=== PATIENT | male | born 1985 | race Caucasian/White ===

== ENCOUNTER 2017-04-10 11:01 | Emergency (ER) | payer MEDICAID ==
[~2017-04-10] VITALS: Ht 175.3 cm; Wt 145.1 kg
[2017-04-10 11:17] VITALS: BP 179/95
[2017-04-10] MEDS ORDERED: IPRATROPIUM BROM 0.5 MG/2.5ML INH SOL NEB ONE (12:45)
[2017-04-10] MEDS ORDERED: ALBUTEROL SULF 2.5 MG/0.5ML(0.5%) NEB SOLN NEB ONE (12:45)
[2017-04-10] MEDS ORDERED: cefTRIAXone SOD 1,000 MG VL IM ONE (13:00)
[2017-04-10] MEDS ORDERED: methylPREDNISolone SOD SUCC 125 MG/2 ML VL IM ONE (13:00)
== END 2017-04-10 13:38 | disposition home or self-care (01) ==
LOC: ER 11:01
DX: J45.901 Unspecified asthma with (acute) exacerbation (principal); J02.9 Acute pharyngitis, unspecified; I10 Essential (primary) hypertension
CPT/HCPCS: 71020; 94640; 96372; 99284; J0696; J2930

== ENCOUNTER → 2020-08-11 13:44 | Emergency (ER) | payer MEDICAID ==
[~2020-08-11] VITALS: Ht 180.3 cm; Wt 190.5 kg
[~2020-08-11 13:44] MED LIST: ALBU108A5 PO; FLUT1AER6 PO; HYDROcodone-ACET 10/325MG TAB PO ONE; IPRAAER6; amLODIPine BESYLATE 5 MG TAB PO ONE; cloNIDine HCL 0.1 MG TAB ONE
[2020-08-11 16:28] VITALS: BP 169/87
== END | disposition home or self-care (01) ==
LOC: ER 13:44
DX: R51.9 Headache, unspecified (principal); I16.1 Hypertensive emergency; I10 Essential (primary) hypertension; J45.909 Unspecified asthma, uncomplicated; W18.39XA Other fall on same level, initial encounter; Y93.89 Activity, other specified; Y92.89 Other specified places as the place of occurrence of the external cause; Y99.8 Other external cause status
CPT/HCPCS: 70260

== ENCOUNTER 2023-04-07 17:26 | Inpatient (IN) | payer MEDICAID ==
[~2023-04-07] VITALS: Ht 175.3 cm; Wt 195.0 kg
[~2023-04-07 17:26] MED LIST changes: -HYDROcodone-ACET 10/325MG TAB PO ONE; -amLODIPine BESYLATE 5 MG TAB PO ONE; -cloNIDine HCL 0.1 MG TAB ONE
[2023-04-07 18:57] LABS: Basophils # (auto) 0.1 10 ^3/uL (0-0.2); Basophils % (auto) 0.8 % (0.0-2.0); Eosinophils # (auto) 0.3 10 ^3/uL (0-0.8); Eosinophils % (auto) 2.9 % (0.0-7.0); Hematocrit 44.2 % (41.0-53.0); Hemoglobin 14.3 g/dL (13.5-17.5); Lymphocytes # (auto) 1.8 10 ^3/uL (0.4-5.4); Mean Corpuscular Hemoglobin 29.4 pg (28.0-32.0); Mean Corpuscular Hgb Conc. 32.4 g/dL (32.0-36.0); Mean Corpuscular Volume 90.7 fL (80.0-100.0); Monocytes # (auto) 0.7 10 ^3/uL (0-1.3); Monocytes % (auto) 6.2 % (0.0-12.0); Neutrophils # (auto) 8.8 10 ^3/uL (1.6-8.6); Neutrophils % (auto) 75.1 % (37.0-80.0); Nucleated Red Blood Cells % 0.1 %; Red Blood Cells 4.88 10^6/uL (4.5-5.90); Red Cell Distribution Width 14.6 % (11.8-14.3); White Blood Cell 11.8 10^3/uL (4.4-10.8)
[2023-04-07 19:09] LABS: Alanine Aminotransferase 28 U/L (7-40); Alkaline Phosphatase 82 U/L (46-116); Anion Gap 4 (5-15); Aspartate Aminotransferase 17 U/L (13-40); Bilirubin, Total 0.6 mg/dL (0.2-1.0); Calcium 8.7 mg/dL (8.7-10.4); Carbon Dioxide 30 mmol/L (20-30); Chloride 104 mmol/L (98-107); Glucose 83 mg/dL (74-106); Magnesium 2.1 mg/dL (1.6-2.6); Potassium 4.1 mmol/L (3.5-5.1); Sodium 138 mmol/L (136-145); Total Protein 6.9 g/dL (5.7-8.2)
[2023-04-07 19:10] LABS: BUN/Creatinine Ratio 5.6 (10.0-20.0); Blood Urea Nitrogen < 5 mg/dL (9-23)
[2023-04-07] MEDS ORDERED: IPRATROPIUM BROM 0.5 MG/2.5ML INH SOL NEB ONE (19:30)
[2023-04-07] MEDS ORDERED: methylPREDNISolone SOD SUCC 125 MG/2 ML VL IV ONE (19:30)
[2023-04-07] MEDS ORDERED: ALBUTEROL SULF 2.5 MG/0.5ML(0.5%) NEB SOLN NEB ONE (19:30)
[2023-04-07] MEDS ORDERED: ALBUTEROL MEDNEB 2.5 mg/3ml NEB ONE (19:31)
[2023-04-07] MEDS ORDERED: ACETAMINOPHEN 325 MG TAB PO PRN (21:15)
[2023-04-07] MEDS ORDERED: ALBUTEROL MEDNEB 2.5 mg/3ml NEB NEB PRN (21:15)
[2023-04-07] MEDS ORDERED: ONDANSETRON HCL 4 MG/2 ML VIAL IV PRN (21:15)
[2023-04-07] MEDS ORDERED: IPRATROPIUM BROM 0.5 MG/2.5ML INH SOL NEB PRN (21:15)
[2023-04-07] MEDS ORDERED: TEMAZEPAM 15 MG CAP PO PRN (21:15)
[2023-04-07 21:23] VITALS: BP 127/69; PULSE 92; RESP 20; TEMP 97.5; O2SAT 97
[2023-04-07] MEDS ORDERED: methylPREDNISolone SOD SUCC 125 MG/2 ML VL IV SCH (22:00)
[2023-04-08] MEDS ORDERED: LOSARTAN POTASSIUM 50 MG TAB PO SCH (10:00)
[2023-04-08] MEDS ORDERED: FUROSEMIDE 20 MG TAB PO SCH (10:00)
[2023-04-08] MEDS ORDERED: amLODIPine BESYLATE 5 MG TAB PO SCH (10:00)
[2023-04-08] MEDS ORDERED: AZITHROMYCIN 500MG/ 250ML 250 ML IV SCH (10:00)
== END 2023-04-08 03:33 | disposition left against medical advice (07) | DRG 133 ==
LOC: ER 17:26 → OVERFLOW 21:14
PROVIDERS: ADMIT Nurse Practitioner; ATTEND Nurse Practitioner
DX: J96.21 Acute and chronic respiratory failure with hypoxia (principal); J45.901 Unspecified asthma with (acute) exacerbation; Z68.44 Body mass index [BMI] 60.0-69.9, adult; E66.01 Morbid (severe) obesity due to excess calories; Z53.21 Procedure and treatment not carried out due to patient leaving prior to being seen by health care provider; Z77.22 Contact with and (suspected) exposure to environmental tobacco smoke (acute) (chronic); I10 Essential (primary) hypertension; J98.4 Other disorders of lung; E16.2 Hypoglycemia, unspecified
CPT/HCPCS: 36415; 71045; 80053; 83605; 83735; 83880; 84484; 85025; 85379; 94640; 99291; G0378

== ENCOUNTER 2024-04-16 13:43 | Inpatient (IN) | payer MEDICAID ==
[~2024-04-16] VITALS: Ht 180.3 cm; Wt 218.3 kg
[2024-04-16] MEDS: ALBUTEROL SULF 2.5 MG/0.5ML(0.5%) NEB SOLN NEB ONE (14:31)
[2024-04-16] MEDS: IPRATROPIUM BROM 0.5 MG/2.5ML INH SOL NEB ONE (14:31)
--- NOTE | 2024-04-16 14:35 | DVH ---
CHEST RADIOGRAPH Indication: sob Technique: Single frontal view of the chest was obtained Comparison: XY CHEST PORTABLE on DOS: 04/07/23 FINDINGS: Lines and Tubes: None Lungs: No focal consolidation. Mild interstitial prominence. Pleura: No effusion. No pneumothorax. Cardiomediastinal contours: Mild cardiomegaly Bones: No acute osseous abnormality. IMPRESSION: Mild pulmonary vascular congestion.
--- NOTE | 2024-04-16 15:05 | ED.PDOC ---
History of Present Illness HPI Comments 38M presents to the ER in a wheelchair and w/ prior Hx of Asthma which may be associated to the c/c of SOB for the past 3 weeks. Pt reports on having a productive cough which is also associated w/ CP. PMHx of HTN and eczema. Social Hx of Vape use but denies alcohol and substance use. Denies chills, fever, N/ V/D, or other associated symptoms, modifiers, or recent injuries at this time. Chief Complaint: Shortness of Breath Time Seen by MD: 14:30 Primary Care Provider: NONE Reviewed Notes: Nurses Notes, Medications, Allergies Allergies: Coded Allergies: NO KNOWN ALLERGIES (Unverified , 02/28/13) Home Meds Reported Medications Fluticasone-Salmeterol (Wixela Inhub 250-50 Mcg/Dose) 1 Aer Aer, 1 PUFF PO BID 08/11/20 Albuterol Sulfate (Albuterol Sulfate Hfa) 108 Mcg/Act Aer, 2 PUFF PO QID PRN for wheezing 08/11/20 Ipratropium-Albuterol (COMBIVENT RESPIMAT) Respimat Aer 08/11/20 Information Source: Patient Mode of Arrival: Wheelchair Severity: Moderate Timing: Weeks Duration: Since onset Prehospital treatment: None Past Medical History PAST MEDICAL HISTORY: Asthma, HTN Past Medical History (Other): eczema Surgical History: Denies all surgeries Family History Family History: Reviewed,noncontributory to illness, Unknown Social History Smoker: Secondhand, Other (Vape use) Alcohol: Denies ETOH Use Drugs: Denies Drug Use Lives In: Home Constitutional: denies: chills, diaphoresis, fatigue, fever, malaise, sweats, weakness, others EENTM: denies: blurred vision, double vision, ear bleeding, ear discharge, ear drainage, ear pain, ear ringing, eye pain, eye redness, hearing loss, mouth pain, mouth swelling, nasal discharge, nose bleeding, nose congestion, nose pain, photophobia, tearing, throat pain, throat swelling, voice changes, others Respiratory: reports: cough, shortness of breath; denies: hemoptysis, orthopnea, SOB at rest, SOB with excertion, stridor, wheezing, others Cardiovascular: reports: chest pain; denies: dizzy spells, diaphoresis, Dyspnea on exertion, edema, irregular heart beat, left arm pain, lightheadedness, palpitations, PND, syncope, others Gastrointestinal: denies: abdomen distended, abdominal pain, blood streaked bowels, constipated, diarrhea, dysphagia, difficulty swallowing, hematemesis, melena, nausea, poor appetite, poor fluid intake, rectal bleeding, rectal pain, vomiting, others Genitourinary: denies: burning, dysuria, flank pain, frequency, hematuria, incontinence, penile discharge, penile sore, pain, testicle pain, testicle swelling, urgency, others Neurological: denies: dizziness, fainting, headache, left sided numbness, left sided weakness, numbness, paresthesia, pre-existing deficit, right sided numbness, right sided weakness, seizure, speech problems, tingling, tremors, weakness, others Musculoskeletal: denies: back pain, gout, joint pain, joint swelling, muscle pain, muscle stiffness, neck pain, others Integumetry: denies: bruises, change in color, change in hair/nails, dryness, laceration, lesions, lumps, rash, wounds, others Allergic/Immunocompromised: denies: Difficulty Healing, Frequent Infections, Hives, Itching, others Hematologic/Lymphatic: denies: anemia, blood clots, easy bleeding, easy bruising, swollen glands, others Endocrine: denies: excessive hunger, excessive sweating, excessive thirst, excessive urination, flushing, intolerance to cold, intolerance to heat, unexplained weight gain, unexplained weight loss, others Psychiatric: denies: anxiety, bipolar disorder, depression, hopeless, panic disorder, schizophrenia, sleepless, suicidal, others All Other Systems: Reviewed and Negative Physical Exam General Appearance: Mild Distress, Obese HEENT: PERRL/EOMI Neck: Full Range of Motion, Normal Inspection Respiratory: Accessory Muscle Use, Decreased Breath Sounds, Respiratory Distress, Wheezing Cardiovascular: No Edema, No JVD, Regular Rate/Rhythm Breast Exam: Deferred Gastrointestinal: Non Tender, Soft Genitalia: Deferred Pelvic: Deferred Rectal: Deferred Extremities: No calf tenderness, Normal inspection, Normal range of motion, Non-tender, Pedal edema Neurologic: Alert (Oriented x4), Normal Affect, Normal Mood, Other (Moves all extremities. No gross focal deficit.) Cerebellar Function: NOT DONE Reflexes: NOT DONE Skin: Dry, Warm, Other (Bilateral lower extremity erythema) Lymphatic: NOT DONE Was a procedure done? Was a procedure done?: No EKG EKG : Comments Sinus rhythm, rate 78, normal intervals, normal axis, normal QRS, nonspecific T changes. Differential Dx Considerations may include: Asthma, COPD, bronchitis, pneumonia, arrhythmia, PR, PE, among others X-Ray, Labs, Meds, VS Vital Signs Date Time Temp Pulse Resp B/P (MAP) Pulse Ox O2 Delivery O2 Flow Rate FiO2 04/16/24 17:21 98.1 81 24 194/100 (131) 87 98.1 04/16/24 14:31 17 94 Room Air* 0 21 04/16/24 14:13 19 93 Room Air* 0 21 04/16/24 14:08 97.4 84 19 169/84 (112) 93 04/16/24 14:05 78 Lab Test 04/16/24 15:34 04/16/24 14:26 Range/Units Troponin I High Sensitivity 27 26 </=54 ng/L White Blood Count 10.2 4.4-10.8 10^3/uL Red Blood Count 4.60 4.5-5.90 10^6/uL Hemoglobin 13.6 13.5-17.5 g/dL Hematocrit 42.2 41.0-53.0 % Mean Corpuscular Volume 91.7 80.0-100.0 fL Mean Corpuscular Hemoglobin 29.6 28.0-32.0 pg Mean Corpuscular Hemoglobin Concent 32.3 32.0-36.0 g/dL Red Cell Distribution Width 15.5 H 11.8-14.3 % Platelet Count 309 140-450 10^3/uL Mean Platelet Volume 8.3 6.9-10.8 fL Neutrophils (%) (Auto) 68.0 37.0-80.0 % Lymphocytes (%) (Auto) 19.4 10.0-50.0 % Monocytes (%) (Auto) 9.0 0.0-12.0 % Eosinophils (%) (Auto) 2.6 0.0-7.0 % Basophils (%) (Auto) 1.0 0.0-2.0 % Neutrophils # (Auto) 7.0 1.6-8.6 10 ^3/uL Lymphocytes # (Auto) 2.0 0.4-5.4 10 ^3/uL Monocytes # (Auto) 0.9 0-1.3 10 ^3/uL Eosinophils # (Auto) 0.3 0-0.8 10 ^3/uL Basophils # (Auto) 0.1 0-0.2 10 ^3/uL Nucleated Red Blood Cells 0.1 % Sodium Level 142 136-145 mmol/L Potassium Level 4.5 3.5-5.1 mmol/L Chloride Level 101 98-107 mmol/L Carbon Dioxide Level 34 H 20-31 mmol/L Anion Gap 7 5-15 Blood Urea Nitrogen 14 9-23 mg/dL Creatinine 1.06 0.700-1.30 mg/dL Glomerular Filtration Rate Calc 93 >90 mL/min BUN/Creatinine Ratio 13.2 10.0-20.0 Serum Glucose 103 74-106 mg/dL Calcium Level 9.9 8.7-10.4 mg/dL B-Type Natriuretic Peptide 49.71 0-100 pg/mL Current Medications Medications (Trade) Dose Ordered Sig/Fracnis Route Start Time Stop Time Status Last Admin Albuterol (Ventolin Medneb) 5 mg ONCE ONCE NEB 04/16/24 14:15 04/16/24 14:16 DC 04/16/24 14:31 Ipratropium [place] (Atrovent Medneb) 0.5 mg ONCE ONCE NEB 04/16/24 14:15 04/16/24 14:16 DC 04/16/24 14:31 Methylprednisolone Sodium Succinate (Solu Medrol) 125 mg ONCE ONCE IV 04/16/24 14:15 04/16/24 14:16 DC 04/16/24 17:06 PROCEDURE(s): CXRP - CHEST PORTABLE REASON: sob ORDER NUMBER(s): [id number], ACCESSION NUMBER(s): [id number] CHEST RADIOGRAPH Indication: sob Technique: Single frontal view of the chest was obtained Comparison: XY CHEST PORTABLE on DOS: 04/07/23 FINDINGS: Lines and Tubes: None Lungs: No focal consolidation. Mild interstitial prominence. Pleura: No effusion. No pneumothorax. Cardiomediastinal contours: Mild cardiomegaly Bones: No acute osseous abnormality. IMPRESSION: Mild pulmonary vascular congestion. X-Ray, Labs, Meds, VS Comment 38-year-old male with a history of asthma, hypertension and morbid obesity complaining of shortness a breath Vitals remarkable for BP 193/100, oxygen saturation 93% on room air Exam remarkable for diminished breath sounds, accessory muscle use, wheezing bilaterally Rhythm strip independently interpreted by me: Sinus rhythm, rate 78, no ectopy. Chest x-ray IMPRESSION: Mild pulmonary vascular congestion. CBC, basic metabolic panel, BNP and troponin unremarkable for any abnormality of acute significance Patient treated with the following in the ED: Albuterol 5 mg/Atrovent 0.5 mg nebulized, Solu-Medrol 125 mg IV, hydralazine 10 mg IV On re-evaluation, wheezing has somewhat improved, blood pressure is improving, other vitals are stable. Patient is saturating normally on 2 L nasal cannula. Plan is to admit the patient for blood pressure control and respiratory support as needed. Time of 1ST Reevaluation: 15:00 Reevaluation 1ST: Unchanged Patient Education/Counseling: Diagnosis, Treatment, Prognosis Family Education/Counseling: Diagnosis, Treatment, Prognosis Additional Information I reviewed the following notes from the pt's past medical encounters: 04/07/23 The following tests were ordered, and results were reviewed by me: Lab, EKGS, X- Ray, PHA Additional information was gathered from interviewing the following independent historians: martinez I reviewed and agreed with the following test results read by other providers: xray I discussed treatments and results with medical personnel and: (consultants, martinez, etc) Departure 1 Departure Time of Disposition: 17:28 Impression: Primary Impression: Acute asthma exacerbation Qualified Codes: J45.901 - Unspecified asthma with (acute) exacerbation Additional Impression: Hypertensive urgency Disposition: ADMITTED INPATIENT Admit to: Tele Condition: Guarded Critical Care Note Critical Care Time?: No Stability Stability form required: No Heart Score Heart Score: Heart Score Response (Comments) Value History N/A 0 EKG N/A 0 Age N/A 0 Risk Factors N/A 0 Troponin N/A 0 Total 0 I personally scribed for SLY MATA MD ([email or web address]) on 04/16/24 at 15:05. Electronically submitted by Rolando Garnett ([email or web address]). SLY MATA MD Apr 16, 2024 15:05
[2024-04-16 15:23] LABS: Basophils # (auto) 0.1 10 ^3/uL (0-0.2); Eosinophils # (auto) 0.3 10 ^3/uL (0-0.8); Eosinophils % (auto) 2.6 % (0.0-7.0); Hematocrit 42.2 % (41.0-53.0); Hemoglobin 13.6 g/dL (13.5-17.5); Lymphocytes % (auto) 19.4 % (10.0-50.0); Mean Corpuscular Hemoglobin 29.6 pg (28.0-32.0); Mean Corpuscular Hgb Conc. 32.3 g/dL (32.0-36.0); Mean Corpuscular Volume 91.7 fL (80.0-100.0); Monocytes # (auto) 0.9 10 ^3/uL (0-1.3); Nucleated Red Blood Cells % 0.1 %; Platelet Count (auto) 309 10^3/uL (140-450); Red Cell Distribution Width 15.5 % (11.8-14.3); White Blood Cell 10.2 10^3/uL (4.4-10.8)
[2024-04-16 15:24] LABS: Anion Gap 7 (5-15); Calcium 9.9 mg/dL (8.7-10.4); Chloride 101 mmol/L (98-107); Potassium 4.5 mmol/L (3.5-5.1); Sodium 142 mmol/L (136-145)
[2024-04-16 15:28] LABS: BUN/Creatinine Ratio 13.2 (10.0-20.0); Blood Urea Nitrogen 14 mg/dL (9-23); Carbon Dioxide 34 mmol/L (20-31); Glucose 103 mg/dL (74-106)
[2024-04-16] MEDS: methylPREDNISolone SOD SUCC 125 MG/2 ML VL IV ONE (17:06)
[2024-04-16 18:16] VITALS: PULSE 80; RESP 16; O2SAT 95
[2024-04-16 18:25] LABS: COVID19 ANTIGEN SOFIA FIA NEGATIVE (NEGATIVE)
[2024-04-16 18:26] LABS: Rapid Influenza A Negative (Negative); Rapid Influenza B Negative (Negative)
[2024-04-16] MEDS: hydrALAZINE HCL 20 MG/ML VL IV ONE (18:26)
[2024-04-16] MEDS ORDERED: DOCUSATE SOD 100 MG CAP PO PRN (19:00)
[2024-04-16] MEDS ORDERED: MORPHINE SULFATE INJ 2 MG/ml SYRG IV PRN ×2 (19:00→21:45)
[2024-04-16] MEDS ORDERED: ONDANSETRON HCL 4 MG/2 ML VIAL IV PRN (19:00)
[2024-04-16] MEDS: IPRATROPIUM BROM 0.5 MG/2.5ML INH SOL ONE (19:07)
[2024-04-16] MEDS: ALBUTEROL SULF 2.5 MG/0.5ML(0.5%) NEB SOLN ONE (19:07)
[2024-04-16 20:09] VITALS: PULSE 75; RESP 14; O2SAT 93
[2024-04-16 20:35] VITALS: BP 164/70; PULSE 86; RESP 22; TEMP 98.8; O2SAT 93
[2024-04-16] MEDS: SODIUM CHLOR 0.9% PF (SALINE LOCK) 10ML VIAL/SYR IV SCH (21:06)
[2024-04-16] MEDS: METOPROLOL TARTRATE 25 MG TAB PO SCH (21:10)
[2024-04-16] MEDS: FAMOTIDINE (10MG/ML) 2ML VL IV SCH (21:10)
[2024-04-16] MEDS: methylPREDNISolone SOD SUCC 40 MG/ML VL IV SCH (21:10)
--- NOTE | 2024-04-16 21:43 | DVHHP2 ---
History of Present Illness Reason for Visit: Acute asthma exacerbation History of Present Illness The patient is a 38-year-old male morbidly obese with past medical history of asthma, eczema, and hypertension who presented to [facility] ED for evaluation of asthma exacerbation. Patient reports he has been having productive cough, associated with chest pain, hypoxic, getting worse that prompted this visit. Patient was seen and evaluated in the ED, laboratory data shows WBC 10.2, platelets 309, sodium 142, potassium 4.5, BUN 14, creatinine 1.06, glucose 103, troponin 26, BNP 49.71, blood pressure 164/70, heart rate 84, temperature 98.4 F, O2 saturation 96% on oxygen. Chest x-ray revealing mild pulmonary vascular congestion. Patient was given IV Solu-Medrol, breathing treatment, please see medication orders section in the computer. On my assessment, patient denied chest pain, no headache, no dizziness, no diaphoresis, currently on oxygen, no diarrhea, no nausea, no vomiting, no fever, no chills. No other modifying factor or other associated signs and symptoms noted. The patient was admitted to the hospital for further evaluation and medical management. Past Medical History Asthma, HTN, Eczema Past Surgical History Denies all surgeries Family History Reviewed, noncontributory to the management of this case. Past Social History The patient lives at home, denies smoking, alcohol or illicit drugs abuse. Review of Systems Constitutional: Yes: Weakness; No: Fever, Chills, Sweats, Malaise, Other Eyes: No: Pain, Vision change, Conjunctivae inflammation, Eyelid inflammation, Other, Redness ENT: No: Ear pain, Ear discharge, Nose pain, Nose discharge, Nose congestion, Mouth pain, Mouth swelling, Throat pain, Throat swelling, Other Respiratory: Cough, Shortness of breath, Wheezing; No: Dry, SOB with excertion, Hemoptysis, Pleuritic Pain, Sputum, Wheezing, Other Cardiovascular: Chest Pain; No: Palpitations, Orthopnea, Paroxysmal Noc. Dyspnea, Edema, Lt Headedness, Other Gastrointestinal: No: Nausea, Vomiting, Abdominal Pain, Diarrhea, Constipation, Melena, Hematochezia, Other Genitourinary: No Dysuria, No Frequency, No Incontinence, No Hematuria, No Ret ention, No Other Musculoskeletal: No: other, neck pain, shoulder pain, arm pain, back pain, hand pain, leg pain, foot pain Skin: No: Rash, Lesions, Jaundice, Bruising, Other Neurological: No: Weakness, Numbness, Incoordination, Change in speech, Confusion, Seizures, Other Allergies: Coded Allergies: NO KNOWN ALLERGIES (Unverified , 02/28/13) Medications Current Medications Medications Dose Ordered Sig/Francis Route Start Time Stop Time Status Last Admin Dose Admin Famotidine 20 mg Q12HR IV 04/16/24 22:00 04/16/24 21:10 20 MG Methylprednisolone Sodium Succinate 40 mg Q8HR IV 04/16/24 22:00 04/16/24 21:10 40 MG Albuterol 2.5 mg Q4HPRN PRN NEB 04/16/24 19:00 Ipratropium [place] 0.5 mg Q4HPRN PRN NEB 04/16/24 19:00 Hydralazine HCl 10 mg Q6HP PRN IV 04/16/24 19:00 Metoprolol Tartrate 25 mg BID PO 04/16/24 22:00 04/16/24 21:10 25 MG Sodium Chloride 10 ml Q8HR IV 04/16/24 22:00 04/16/24 21:06 10 ML Acetaminophen/ Hydrocodone Bitart 1 tab Q4HP PRN PO 04/16/24 19:00 Ondansetron HCl 4 mg Q4HP PRN IV 04/16/24 19:00 Docusate Sodium 100 mg BIDPRN PRN PO 04/16/24 19:00 Acetaminophen 650 mg Q6HP PRN PO 04/16/24 19:00 Morphine Sulfate 2 mg Q4HPRN PRN IV 04/16/24 19:00 Exam Vital Signs Vital Signs Date Time Temp Pulse Resp B/P (MAP) Pulse Ox O2 Delivery O2 Flow Rate FiO2 04/16/24 21:10 82 175/103 04/16/24 20:35 98.8 22 93 2.0 28 98.8 04/16/24 20:09 Nasal Cannula* General Appearance: Alert, Oriented X3, Cooperative, No acute distress HEENT: Atraumatic, PERRLA, EOMI, Mucous membr. moist/pink Respiratory: Normal air movement, Other (Wheezing) Cardiovascular: Regular rate, Normal S1, Normal S2, No murmurs Abdominal: Normal bowel sounds, Soft, No tenderness, No hepatospenomegaly, No masses Extremities: No clubbing, No cyanosis, No edema, Normal pulses, No tenderness/swelling Skin: No rashes, No breakdown, No significant lesion Neuro: Normal speech, Normal tone, Sensation intact, Cranial nerves 3-12 NL, Reflexes 2+, Other (Generalized weakness) Psych/Mental Status: Mental status NL, Mood NL Labs/Xrays Labs Test 04/16/24 17:35 04/16/24 17:33 04/16/24 14:26 Range/Units Influenza Type A Antigen Negative Negative Influenza Type B Antigen Negative Negative SARS-CoV-2 Antigen (Rapid) Negative NEGATIVE Troponin I High Sensitivity 29 </=54 ng/L White Blood Count 10.2 4.4-10.8 10^3/uL Red Blood Count 4.60 4.5-5.90 10^6/uL Hemoglobin 13.6 13.5-17.5 g/dL Hematocrit 42.2 41.0-53.0 % Mean Corpuscular Volume 91.7 80.0-100.0 fL Mean Corpuscular Hemoglobin 29.6 28.0-32.0 pg Mean Corpuscular Hemoglobin Concent 32.3 32.0-36.0 g/dL Red Cell Distribution Width 15.5 H 11.8-14.3 % Platelet Count 309 140-450 10^3/uL Mean Platelet Volume 8.3 6.9-10.8 fL Neutrophils (%) (Auto) 68.0 37.0-80.0 % Lymphocytes (%) (Auto) 19.4 10.0-50.0 % Monocytes (%) (Auto) 9.0 0.0-12.0 % Eosinophils (%) (Auto) 2.6 0.0-7.0 % Basophils (%) (Auto) 1.0 0.0-2.0 % Neutrophils # (Auto) 7.0 1.6-8.6 10 ^3/uL Lymphocytes # (Auto) 2.0 0.4-5.4 10 ^3/uL Monocytes # (Auto) 0.9 0-1.3 10 ^3/uL Eosinophils # (Auto) 0.3 0-0.8 10 ^3/uL Basophils # (Auto) 0.1 0-0.2 10 ^3/uL Nucleated Red Blood Cells 0.1 % Sodium Level 142 136-145 mmol/L Potassium Level 4.5 3.5-5.1 mmol/L Chloride Level 101 98-107 mmol/L Carbon Dioxide Level 34 H 20-31 mmol/L Anion Gap 7 5-15 Blood Urea Nitrogen 14 9-23 mg/dL Creatinine 1.06 0.700-1.30 mg/dL Glomerular Filtration Rate Calc 93 >90 mL/min BUN/Creatinine Ratio 13.2 10.0-20.0 Serum Glucose 103 74-106 mg/dL Calcium Level 9.9 8.7-10.4 mg/dL B-Type Natriuretic Peptide 49.71 0-100 pg/mL PATIENT: NGOC UMANA ACCT: [id number] UNIT: [id number] : 1985 LOC: ER ROOM / BED: / AGE / SEX: 38 / M ADM STATUS: REG ER SERVICE 1409 ORDERING PHYSICIAN: SLY MATA MD PROCEDURE(s): CXRP - CHEST PORTABLE REASON: sob ORDER NUMBER(s): [id number], ACCESSION NUMBER(s): [id number] CHEST RADIOGRAPH Indication: sob Technique: Single frontal view of the chest was obtained Comparison: XY CHEST PORTABLE on DOS: 04/07/23 FINDINGS: Lines and Tubes: None Lungs: No focal consolidation. Mild interstitial prominence. Pleura: No effusion. No pneumothorax. Cardiomediastinal contours: Mild cardiomegaly Bones: No acute osseous abnormality. IMPRESSION: Mild pulmonary vascular congestion. Assessment/Plan Assessment/Plan Acute asthma exacerbation Hypertensive urgency Unspecified asthma with (acute) exacerbation Plan 1. Admit to telemetry unit 2. Breathing treatment 3. Pain control management 4. Management of fluids and electrolytes 5. Consultation for pulmonology 6. Diagnostic tests chest x-ray 7. DVT prophylaxis-on SCDs 8. Repeat labs CBC, CMP in a.m. 9. Continue with current medical management 10. Treatment plan discussed with patient and RN. Patient verbalized understanding. Plan discussed with: Patient, Other (RN) My Orders Orders - BRADY STERN DNP Procedure Category Date Status Time Famotidine Injection PHA 04/16/24 In Process (Pepcid Injection) 22:00 Methylprednisolone PHA 04/16/24 In Process Sod Succ (Solu Medrol 22:00 Albuterol Medneb PHA 04/16/24 In Process (Ventolin Medneb) 19:00 Ipratropium Medneb PHA 04/16/24 In Process (Atrovent Medneb) 19:00 Hydralazine Injection PHA 04/16/24 In Process (Apresoline Inject 19:00 Metoprolol Tartrate PHA 04/16/24 In Process Tablet (Lopressor Ta 22:00 Allergies FREDO 04/16/24 In Process 18:52 Code Status CODE 04/16/24 Transmitted 18:52 Sodium Chloride Lock PHA 04/16/24 In Process (Saline Lock Ns) 22:00 Oxygen Per Hour RT 04/16/24 Transmitted 18:52 Hydrocodone-Acet PHA 04/16/24 In Process 5/325mg Tab ([place] 19:00 Ondansetron Hcl PHA 04/16/24 In Process (Zofran) 19:00 Docusate Sodium PHA 04/16/24 In Process Capsule (Colace 19:00 Complete Blood Count LAB 04/17/24 Verified 04:00 Comprehensive LAB 04/17/24 Verified Metabolic Panel 04:00 Cardiac DIET 04/17/24 Transmitted Diet-2gna,Lofat,Lochol Breakfast Condition: Serious FREDO 04/16/24 In Process 18:52 Acetaminophen Tablet PHA 04/16/24 In Process (Tylenol Tablet) 19:00 Bedrest With Bathroom FREDO 04/16/24 In Process Privileg 18:52 Morphine Sulfate PHA 04/16/24 In Process Injection 19:00 Sequential FREDO 04/16/24 In Process Compression Device *Consult CONS 04/16/24 Transmitted / 18:52 Problem List: (1) Acute asthma exacerbation (2) Hypertensive urgency (3) Unspecified asthma with (acute) exacerbation Date of Service: Apr 16, 2024 Billing Provider: BRADY STERN DNP Common Visit Codes: [id number] INP/OBS CARE (HIGH) BRADY STERN DNP Apr 16, 2024 21:43
[2024-04-16] MEDS ORDERED: NITROGLYCERIN 0.4 MG SL TAB SL PRN (21:45)
[2024-04-16] MEDS: hydrALAZINE HCL 20 MG/ML VL IV PRN (22:10)
[2024-04-17] VITALS (19 sets, daily range): BP systolic 149–192; BP diastolic 97–132; PULSE 63–104; RESP 15–22; TEMP 97.6–98.4; O2SAT 90–100
[2024-04-17] MEDS: ACETAMINOPHEN 325 MG TAB PO PRN (01:06)
[2024-04-17] MEDS: ALBUTEROL SULF 2.5 MG/0.5ML(0.5%) NEB SOLN NEB PRN (01:15)
[2024-04-17] MEDS: IPRATROPIUM BROM 0.5 MG/2.5ML INH SOL NEB PRN (01:15)
[2024-04-17] MEDS: IPRATROPIUM BROM 0.5 MG/2.5ML INH SOL NEB SCH (06:23)
[2024-04-17] MEDS: ALBUTEROL SULF 2.5 MG/0.5ML(0.5%) NEB SOLN NEB SCH (06:23)
[2024-04-17 07:09] LABS: Alanine Aminotransferase 32 U/L (7-40); Albumin 4.4 g/dL (3.2-4.8); Alkaline Phosphatase 89 U/L (46-116); Anion Gap 7 (5-15); Aspartate Aminotransferase 15 U/L (13-40); BUN/Creatinine Ratio 13.1 (10.0-20.0); Bilirubin, Total 0.6 mg/dL (0.2-1.0); Blood Urea Nitrogen 13 mg/dL (9-23); Calcium 9.9 mg/dL (8.7-10.4); Chloride 101 mmol/L (98-107); Potassium 4.7 mmol/L (3.5-5.1); Sodium 139 mmol/L (136-145); Total Protein 7.7 g/dL (5.7-8.2)
[2024-04-17 07:21] LABS: Carbon Dioxide 31 mmol/L (20-31); Glucose 137 mg/dL (74-106)
[2024-04-17] MEDS: HYDROcodone-ACET 5/325MG TAB PO PRN (09:04)
[2024-04-17 09:25] LABS: Basophils # (auto) 0 10 ^3/uL (0-0.2); Basophils % (auto) 0.1 % (0.0-2.0); Eosinophils # (auto) 0 10 ^3/uL (0-0.8); Hematocrit 46.1 % (41.0-53.0); Hemoglobin 14.7 g/dL (13.5-17.5); Lymphocytes # (auto) 0.8 10 ^3/uL (0.4-5.4); Lymphocytes % (auto) 5.6 % (10.0-50.0); Mean Corpuscular Hemoglobin 29.1 pg (28.0-32.0); Mean Corpuscular Hgb Conc. 31.9 g/dL (32.0-36.0); Mean Corpuscular Volume 91.3 fL (80.0-100.0); Monocytes # (auto) 0.2 10 ^3/uL (0-1.3); Monocytes % (auto) 1.6 % (0.0-12.0); Neutrophils # (auto) 13.5 10 ^3/uL (1.6-8.6); Neutrophils % (auto) 92.7 % (37.0-80.0); Nucleated Red Blood Cells % 0.1 %; Platelet Count (auto) 354 10^3/uL (140-450); Red Blood Cells 5.05 10^6/uL (4.5-5.90); Red Cell Distribution Width 15.6 % (11.8-14.3); White Blood Cell 14.5 10^3/uL (4.4-10.8)
[2024-04-17 10:43] LABS: Base Excess 2.1 mmol/L (-2.0-3.0)
--- NOTE | 2024-04-17 10:48 | DVHINCON2 ---
Date Seen: Apr 17, 2024 Referring Physician Bam Reason for Consultation Bradycardia, pauses History of Present Illness 38-year-old male with PMH for morbidly obesity, HTN, asthma, presents to the hospital with shortness of breath, cough and chest pain. Patient states he has been using his rescue inhaler and takes medication but been having increased shortness of breath x1 week. He endorses productive cough with green brown sputum. Patient states chest pain, sharp ache in nature, intermittent, more musculoskeletal per patient, increases with cough and deep breathing. Patient states he feels it is soreness due to his constant coughing. Upon evaluation negative trending troponin x3. CXR done showed mild pulmonary vascular congestion. While on tele patient noted to be bradycardic at times with intermittent pauses. Upon review patient noted to have 5 second pause on tele. Patient states that he has sleep apnea though was never officially diagnosed and does not have any type of CPAP machine at home. EKG reviewed and shows sinus rhythm at 78 beats per minute. No acute ST abnormalities noted. Past Medical History HTN Asthma HLD Morbid obesity Undiagnosed SANJAY Past Surgical History Denies previous cardiac surgery Family History: Asthma G8 MOTHER Diabetes mellitus G8 FATHER, Hypertension G8 FATHER, Social History Denies alcohol, tobacco, or illicit drug use. Allergies: Coded Allergies: NO KNOWN ALLERGIES (Unverified , 02/28/13) Home Meds Reported Medications Fluticasone-Salmeterol (Wixela Inhub 250-50 Mcg/Dose) 1 Aer Aer, 1 PUFF PO BID 08/11/20 Albuterol Sulfate (Albuterol Sulfate Hfa) 108 Mcg/Act Aer, 2 PUFF PO QID PRN for wheezing 08/11/20 Ipratropium-Albuterol (COMBIVENT RESPIMAT) Respimat Aer 08/11/20 Current Medications Current Medications Medications (Trade) Dose Ordered Sig/Francis Route PRN Reason Start Time Stop Time Status Last Admin Famotidine (Pepcid Injection) 20 mg Q12HR IV 04/16/24 22:00 04/17/24 08:51 Methylprednisolone Sodium Succinate (Solu Medrol) 40 mg Q8HR IV 04/16/24 22:00 04/17/24 06:13 Albuterol (Ventolin Medneb) 2.5 mg Q4HPRN PRN NEB SHORTNESS OF BREATH 04/16/24 19:00 04/17/24 01:22 DC 04/17/24 01:15 Ipratropium [place] (Atrovent Medneb) 0.5 mg Q4HPRN PRN NEB SHORTNESS OF BREATH 04/16/24 19:00 04/17/24 01:22 DC 04/17/24 01:15 Hydralazine HCl (Apresoline Injection) 10 mg Q6HP PRN IV SBP>150 04/16/24 19:00 04/17/24 08:52 Metoprolol Tartrate (Lopressor Tablet) 25 mg BID PO 04/16/24 22:00 04/17/24 09:52 DC 04/17/24 08:52 Sodium Chloride (Saline Lock Ns) 10 ml Q8HR IV 04/16/24 22:00 04/17/24 06:13 Acetaminophen/ Hydrocodone Bitart ([place] 5/325MG Tab) 1 tab Q4HP PRN PO MODERATE PAIN (4-6 PAIN SCALE) 04/16/24 19:00 04/17/24 09:04 Ondansetron HCl (Zofran) 4 mg Q4HP PRN IV NAUSEA / VOMITING 04/16/24 19:00 Docusate Sodium (Colace Capsule) 100 mg BIDPRN PRN PO FOR CONSTIPATION 04/16/24 19:00 Acetaminophen (Tylenol Tablet) 650 mg Q6HP PRN PO PAIN SCALE 1-3 OR TEMP>100.4 04/16/24 19:00 04/17/24 01:06 Morphine Sulfate 2 mg Q4HPRN PRN IV SEVERE PAIN (7-10 PAIN SCALE) 04/16/24 19:00 Nitroglycerin (Ntrostat Sublingual) 0.4 mg Q5MINP PRN SL FOR CHEST PAIN 04/16/24 21:45 Morphine Sulfate 2 mg Q30M PRN IV FOR CHEST PAIN 04/16/24 21:45 Albuterol (Ventolin Medneb) 2.5 mg Q4HR NEB 04/17/24 06:00 04/17/24 10:05 Ipratropium [place] (Atrovent Medneb) 0.5 mg Q4HR NEB 04/17/24 06:00 04/17/24 10:05 Amlodipine Besylate (Norvasc Tablet) 10 mg DAILY PO 04/17/24 10:00 Enalapril Maleate (Vasotec Tablet) 20 mg DAILY PO 04/17/24 10:00 Furosemide (Lasix Injection) 40 mg BIDD IV 04/17/24 18:00 UNV Review of Systems Constitutional: No: Fever, Chills, Sweats, Weakness, Malaise, Other Eyes: No: Pain, Vision change, Conjunctivae inflammation, Eyelid inflammation, Other, Redness ENT: No: Ear pain, Ear discharge, Nose pain, Nose discharge, Nose congestion, Mouth pain, Mouth swelling, Throat pain, Throat swelling, Other Respiratory: No: Cough, Dry, , Hemoptysis, Pleuritic Pain, Sputum, Wheezing, Other positive: Shortness of breath, SOB with exertion, Wheezing Cardiovascular: ; No: Chest Pain Palpitations, , Paroxysmal Noc. , Lt Head edness, Other positive: OrthopneaDyspnea, Edema Gastrointestinal: No: Nausea, Vomiting, Abdominal Pain, Diarrhea, Constipation, Melena, Hematochezia, Other Genitourinary: No Dysuria, No Frequency, No Incontinence, No Hematuria, No Retention, No Other Musculoskeletal: neck pain; No: other, shoulder pain, arm pain, back pain, hand pain, leg pain, foot pain Skin: No: Rash, Lesions, Jaundice, Bruising, Other Neurological: Other (Dizziness, headache.); No: Weakness, Numbness, Incoo rdination, Change in speech, Confusion, Seizures Vital Signs Vital Signs Date Time Temp Pulse Resp B/P (MAP) Pulse Ox O2 Delivery O2 Flow Rate FiO2 04/17/24 10:11 95 16 100 04/17/24 10:05 Nasal Cannula* 3 32 04/17/24 09:53 97.6 153/127 (136) 97.6 Physical Exam General appearance: Morbidly obese, in mild acute distress. HEENT: Exam shows: Normocephalic, atraumatic, PERRLA, EOMI Neck: Supple, no bruits Chest: Equal chest excursion bilaterally. Breath sounds diminished/wheezes. Heart: Rhythm: Regular rate; pauses, no murmur or gallop Abdomen: Exam shows: Soft, nontender, nondistended Musculoskeletal: No clubbing, no cyanosis, + lower extremity edema Dermatology: Skin warm, moist. Neurological: Exam shows: Alert and oriented x4, normal speech Available prior records, labs, EKG, rhythm strips reviewed and interpreted Labs/Diagnostic Data Labs Test 04/17/24 06:11 04/16/24 17:35 04/16/24 17:33 04/16/24 14:26 Range/Units White Blood Count 14.5 #H 4.4-10.8 10^3/uL Red Blood Count 5.05 4.5-5.90 10^6/uL Hemoglobin 14.7 13.5-17.5 g/dL Hematocrit 46.1 41.0-53.0 % Mean Corpuscular Volume 91.3 80.0-100.0 fL Mean Corpuscular Hemoglobin 29.1 28.0-32.0 pg Mean Corpuscular Hemoglobin Concent 31.9 L 32.0-36.0 g/dL Red Cell Distribution Width 15.6 H 11.8-14.3 % Platelet Count 354 140-450 10^3/uL Mean Platelet Volume 8.6 6.9-10.8 fL Neutrophils (%) (Auto) 92.7 H 37.0-80.0 % Lymphocytes (%) (Auto) 5.6 L 10.0-50.0 % Monocytes (%) (Auto) 1.6 0.0-12.0 % Eosinophils (%) (Auto) 0.0 0.0-7.0 % Basophils (%) (Auto) 0.1 0.0-2.0 % Neutrophils # (Auto) 13.5 H 1.6-8.6 10 ^3/uL Lymphocytes # (Auto) 0.8 0.4-5.4 10 ^3/uL Monocytes # (Auto) 0.2 0-1.3 10 ^3/uL Eosinophils # (Auto) 0 0-0.8 10 ^3/uL Basophils # (Auto) 0 0-0.2 10 ^3/uL Nucleated Red Blood Cells 0.1 % Sodium Level 139 136-145 mmol/L Potassium Level 4.7 3.5-5.1 mmol/L Chloride Level 101 98-107 mmol/L Carbon Dioxide Level 31 20-31 mmol/L Anion Gap 7 5-15 Blood Urea Nitrogen 13 9-23 mg/dL Creatinine 0.99 0.700-1.30 mg/dL Glomerular Filtration Rate Calc 101 >90 mL/min BUN/Creatinine Ratio 13.1 10.0-20.0 Serum Glucose 137 H 74-106 mg/dL Calcium Level 9.9 8.7-10.4 mg/dL Total Bilirubin 0.6 0.2-1.0 mg/dL Aspartate Amino Transferase (AST) 15 13-40 U/L Alanine Aminotransferase (ALT) 32 7-40 U/L Alkaline Phosphatase 89 46-116 U/L Total Protein 7.7 5.7-8.2 g/dL Albumin 4.4 3.2-4.8 g/dL Influenza Type A Antigen Negative Negative Influenza Type B Antigen Negative Negative SARS-CoV-2 Antigen (Rapid) Negative NEGATIVE Troponin I High Sensitivity 29 </=54 ng/L B-Type Natriuretic Peptide 49.71 0-100 pg/mL Assessment 5 sec heart pause HTN SANJAY Asthma Acute hypoxic respiratory failure Atypical Chest Pain Pulmonary Congestion, CHF? Plan/Recommendation * Discontinue all AV crow blockers. EP consult with Dr. Mancera. Follow-up echo * Troponins negative. Chest pain musculoskeletal in nature. EKG negative for acute ischemic changes. ACS ruled out. * Recommend pulmonology consult for SANJAY follow up, CPAP while asleep. * Continue diuresing with lasix 40 mg IV twice daily. Monitor strict I&Os. * Continue home dose amlodipine and enalapril. Metoprolol dc'd. Hydralazine added. Case Discussed with Dr Burgos. Continue telemetry monitoring. Avoid AV crow blockers. Consult EP with Dr. Mancera for ppm evaluation. Recommend pu lmonology follow up for undiagnosed SANJAY, CPAP while asleep. Follow up ECHO. Continue diuresis. Continue blood pressure monitoring and med titration. Critical care, time spent: 48 minutes This medical document was created using an electronic medical record system with voice recognition software and computerized dictation system. Although this document has been carefully reviewed, there might still be some phonetic and typographical errors. Occasional wrong-word or ``sound-alike substitutions may have occurred due to the inherent limitations of voice recognition software. These areas are purely typographical due to imperfections of the software programs and do not reflect any compromise in the patient's medical care. Please read the chart carefully and recognize, using context, where these substitutions have occurred. Plan discussed with: Patient Date of Service: Apr 17, 2024 Billing Provider: BRANDY BERTRAND [facility] Cardiology Common Codes: [id number] INP/OBS CARE (High), [id number] CARE 30-74 MIN BRANDY BERTRAND [facility] Apr 17, 2024 10:48
[2024-04-17] MEDS: amLODIPine BESYLATE 5 MG TAB PO SCH (13:15)
[2024-04-17] MEDS: ENALAPRIL MALEATE 10 MG TAB PO SCH (13:15)
[2024-04-17] MEDS: hydrALAZINE HCL 25 MG TAB PO ONE (13:16)
--- NOTE | 2024-04-17 17:13 | DVHINCON2 ---
Date of service: Apr 17, [address] Burgos Reason for Consultation Sinus pause (5 seconds) and bradycardia while sleeping. History of Present Illness Lokesh Pugh is a 38 y/o morbidly obese (BMI 67.1) male with h/o asthma, eczema, HTN, and snoring, who presented to the ED with c/o asthma exacerbation with productive cough and hypoxia. While in the hospital, the patient was noted to have bradycardia while sleeping with intermittent pauses up to 5 seconds in duration. Patient states he has been told before that he has sleep apnea but has not been formally diagnosed. He also reports trying to get his PMD to refer him for sleep study over the past 3 years but he states he has been told he does not need one. Pt endorses BUTLER upon waking, sleeping 8 hours a night but still feeling tired, and reports family tells him he snores heavily with periods of not breathing. Pt is noted to sleep on and off throughout the day here in the hospital as well as through night. Bradycardia and pauses occur when patient is sleeping with NSR seen while he is awake. CXR revealed mild pulmonary vascular congestion. WBC 14.5 HS troponin EP is consulted for evaluation of bradycardia and sinus pauses. Family History: Asthma G8 MOTHER Diabetes mellitus G8 FATHER, Hypertension G8 FATHER, Allergies: Coded Allergies: NO KNOWN ALLERGIES (Unverified , 02/28/13) Home Meds Reported Medications Fluticasone-Salmeterol (Wixela Inhub 250-50 Mcg/Dose) 1 Aer Aer, 1 PUFF PO BID 08/11/20 Albuterol Sulfate (Albuterol Sulfate Hfa) 108 Mcg/Act Aer, 2 PUFF PO QID PRN for wheezing 08/11/20 Ipratropium-Albuterol (COMBIVENT RESPIMAT) Respimat Aer 08/11/20 Current Medications Current Medications Medications (Trade) Dose Ordered Sig/Francis Route PRN Reason Start Time Stop Time Status Last Admin Famotidine (Pepcid Injection) 20 mg Q12HR IV 04/16/24 22:00 04/17/24 08:51 Methylprednisolone Sodium Succinate (Solu Medrol) 40 mg Q8HR IV 04/16/24 22:00 04/17/24 13:26 Albuterol (Ventolin Medneb) 2.5 mg Q4HPRN PRN NEB SHORTNESS OF BREATH 04/16/24 19:00 04/17/24 01:22 DC 04/17/24 01:15 Ipratropium [place] (Atrovent Medneb) 0.5 mg Q4HPRN PRN NEB SHORTNESS OF BREATH 04/16/24 19:00 04/17/24 01:22 DC 04/17/24 01:15 Hydralazine HCl (Apresoline Injection) 10 mg Q6HP PRN IV SBP>150 04/16/24 19:00 04/17/24 08:52 Metoprolol Tartrate (Lopressor Tablet) 25 mg BID PO 04/16/24 22:00 04/17/24 09:52 DC 04/17/24 08:52 Sodium Chloride (Saline Lock Ns) 10 ml Q8HR IV 04/16/24 22:00 04/17/24 13:16 Acetaminophen/ Hydrocodone Bitart ([place] 5/325MG Tab) 1 tab Q4HP PRN PO MODERATE PAIN (4-6 PAIN SCALE) 04/16/24 19:00 04/17/24 13:17 Ondansetron HCl (Zofran) 4 mg Q4HP PRN IV NAUSEA / VOMITING 04/16/24 19:00 Docusate Sodium (Colace Capsule) 100 mg BIDPRN PRN PO FOR CONSTIPATION 04/16/24 19:00 Acetaminophen (Tylenol Tablet) 650 mg Q6HP PRN PO PAIN SCALE 1-3 OR TEMP>100.4 04/16/24 19:00 04/17/24 01:06 Morphine Sulfate 2 mg Q4HPRN PRN IV SEVERE PAIN (7-10 PAIN SCALE) 04/16/24 19:00 Nitroglycerin (Ntrostat Sublingual) 0.4 mg Q5MINP PRN SL FOR CHEST PAIN 04/16/24 21:45 Morphine Sulfate 2 mg Q30M PRN IV FOR CHEST PAIN 04/16/24 21:45 Albuterol (Ventolin Medneb) 2.5 mg Q4HR NEB 04/17/24 06:00 04/17/24 13:57 Ipratropium [place] (Atrovent Medneb) 0.5 mg Q4HR NEB 04/17/24 06:00 04/17/24 13:57 Amlodipine Besylate (Norvasc Tablet) 10 mg DAILY PO 04/17/24 10:00 04/17/24 13:15 Enalapril Maleate (Vasotec Tablet) 20 mg DAILY PO 04/17/24 10:00 04/17/24 13:15 Furosemide (Lasix Injection) 40 mg BIDD IV 04/17/24 18:00 Hydralazine HCl (Apresoline Tablet) 25 mg Q12HR PO 04/17/24 22:00 Vital Signs Vital Signs Date Time Temp Pulse Resp B/P (MAP) Pulse Ox O2 Delivery O2 Flow Rate FiO2 04/17/24 14:47 97.7 79 19 149/97 (114) 94 97.7 04/17/24 13:57 Nasal Cannula 3.0 04/17/24 13:57 32 Physical Exam General: No acute distress. Awake and conversant. Morbid obesity Neck: Neck is supple. No masses or thyromegaly, no JVD, No carotid bruit. Respiratory: Respirations are non-labored. Lungs are clear to auscultation. Diminished in the bases bilaterally Skin: Warm. CV: RRR, Normal heart sounds, no murmurs. No lower extremity edema. Neuro: AAo x 4 Labs/Diagnostic Data Labs Test 04/17/24 10:10 04/17/24 06:11 04/16/24 17:35 04/16/24 17:33 Range/Units Blood Gas Specimen Type Arterial Blood Gas Sample Site Right radial Blood Gas Patient Temperature 37.0 Arterial Blood Date Drawn [id number] Arterial Blood pH 7.339 L 7.350-7.450 Arterial Blood Partial Pressure CO2 55.7 H 35.0-48.0 mmHg Arterial Blood Partial Pressure O2 77.6 L 83.0-108.0 mmHg Arterial Blood HCO3 29.3 H 21.0-28.0 mmol/L Arterial Blood Oxygen Saturation 94.9 94.0-98.0 % Arterial Blood Base Excess 2.1 -2.0-3.0 mmol/L Arterial Blood Oxyhemoglobin 93.3 L 94.0-98.0 % Arterial Blood Carboxyhemoglobin 1.4 0.5-1.5 % Arterial Blood Methemoglobin 0.3 0.0-1.5 % Lloyd Test Yes Blood Gas Total Hemoglobin 15.10 13.5-17.5 g/dL Blood Gas Liter Flow 3.00 Blood Gas Modality Nasal cannula FiO2 % 32.0 White Blood Count 14.5 #H 4.4-10.8 10^3/uL Red Blood Count 5.05 4.5-5.90 10^6/uL Hemoglobin 14.7 13.5-17.5 g/dL Hematocrit 46.1 41.0-53.0 % Mean Corpuscular Volume 91.3 80.0-100.0 fL Mean Corpuscular Hemoglobin 29.1 28.0-32.0 pg Mean Corpuscular Hemoglobin Concent 31.9 L 32.0-36.0 g/dL Red Cell Distribution Width 15.6 H 11.8-14.3 % Platelet Count 354 140-450 10^3/uL Mean Platelet Volume 8.6 6.9-10.8 fL Neutrophils (%) (Auto) 92.7 H 37.0-80.0 % Lymphocytes (%) (Auto) 5.6 L 10.0-50.0 % Monocytes (%) (Auto) 1.6 0.0-12.0 % Eosinophils (%) (Auto) 0.0 0.0-7.0 % Basophils (%) (Auto) 0.1 0.0-2.0 % Neutrophils # (Auto) 13.5 H 1.6-8.6 10 ^3/uL Lymphocytes # (Auto) 0.8 0.4-5.4 10 ^3/uL Monocytes # (Auto) 0.2 0-1.3 10 ^3/uL Eosinophils # (Auto) 0 0-0.8 10 ^3/uL Basophils # (Auto) 0 0-0.2 10 ^3/uL Nucleated Red Blood Cells 0.1 % Sodium Level 139 136-145 mmol/L Potassium Level 4.7 3.5-5.1 mmol/L Chloride Level 101 98-107 mmol/L Carbon Dioxide Level 31 20-31 mmol/L Anion Gap 7 5-15 Blood Urea Nitrogen 13 9-23 mg/dL Creatinine 0.99 0.700-1.30 mg/dL Glomerular Filtration Rate Calc 101 >90 mL/min BUN/Creatinine Ratio 13.1 10.0-20.0 Serum Glucose 137 H 74-106 mg/dL Calcium Level 9.9 8.7-10.4 mg/dL Total Bilirubin 0.6 0.2-1.0 mg/dL Aspartate Amino Transferase (AST) 15 13-40 U/L Alanine Aminotransferase (ALT) 32 7-40 U/L Alkaline Phosphatase 89 46-116 U/L Total Protein 7.7 5.7-8.2 g/dL Albumin 4.4 3.2-4.8 g/dL Influenza Type A Antigen Negative Negative Influenza Type B Antigen Negative Negative SARS-CoV-2 Antigen (Rapid) Negative NEGATIVE Troponin I High Sensitivity 29 </=54 ng/L Test 04/16/24 14:26 Range/Units B-Type Natriuretic Peptide 49.71 0-100 pg/mL Plan/Recommendation 38 y/o morbidly obese (BMI 67.1) male with h/o asthma, eczema, HTN, and snoring, who presented to the ED with c/o asthma exacerbation with productive cough and hypoxia. While in the hospital, the patient was noted to have bradycardia while sleeping with intermittent pauses up to 5 seconds in duration. Patient states he has been told before that he has sleep apnea but has not been formally diagnosed. He also reports trying to get his PMD to refer him for sleep study over the past 3 years but he states he has been told he does not need one. Pt endorses BUTLER upon waking, sleeping 8 hours a night but still feeling tired, and reports family tells him he snores heavily with periods of not breathing. Pt is noted to sleep on and off throughout the day here in the hospital as well as through night. Bradycardia and pauses occur when patient is sleeping with NSR seen while he is awake. CXR revealed mild pulmonary vascular congestion. WBC 14.5 HS troponin EP is consulted for evaluation of bradycardia and sinus pauses. Assessments: Suspected SANJAY Sinus bradycardia with sleep Sinus Pauses with sleep Morbid obesity EP recommendations: Given patient's body habitus, symptoms, and telemetry review, presentation favors SANJAY leading to bradycardia and sinus pauses. - Pt needs sleep study with appropriate CPAP therapy joya as outpatient - Pt would benefit from cardiology follow up as outpatient as well to observe for improvement once on CPAP therapy. - Consider outpatient power generation technician at that time. No plan for PPM implantation at this time. Remainder of cardiac management per primary cardiology Management in telemetry Cardiac monitoring Ongoing rate and rhythm surveillance Hemodynamic monitoring. Avoid hypertension and hypotension. Monitor and maintain electrolytes and renal function. Supplement as needed to maintain K > 4.0 and Mg > 2.0. Monitor Hgb and transfuse if Hgb < 7.0. Lifestyle and risk modification counseling All available labs, EKGs, and images were personally reviewed Patient's status, findings, and plan of care was discussed and reviewed with supervising physician Dr. Mancera, who is in agreement with current plan of care. Plan of care discussed with and agreed upon by the patient/Primary RN. Prognosis:Guarded Thank you for allowing me to participate in the care of this patient. Further recommendations will depend on clinical progression, hospitalist, and other consultants. Will continue to follow with Primary. If you have any questions, please do not hesitate to contact me. A total of 75 minutes was spent reviewing the patient record, examining the patient, making a diagnostic and therapeutic plan, discussing this plan with medical personnel, following up on diagnostic studies and following the patient for clinical stability including any and all procedures. At least 50% of this time was spent in direct, [id number] contact. Plan discussed with: Patient, Other (RN) Provider Statement: I have reviewed the case with my supervising physician. We have agreed with the plan of care. JOSE [facility] Apr 17, 2024 17:13
[2024-04-17] MEDS: FUROSEMIDE 40 MG/4 ML VIAL IV SCH (17:52)
--- NOTE | 2024-04-17 17:52 | DVHPNRES ---
Progress Note Date Seen: Apr 17, 2024 Resident Creating Document: KATY RAMIREZ RESIDENT Medical Necessity Reason Pt with a Central, PICC or Fol: No Medical Necessity Reason ASTHMA EXACERBATION Subjective Review of Systems This is a 38-year-old male with a past medical history of asthma eczema, hypertension, diabetes, hyperlipidemia, presented to the ED with shortness of breaths. According to the patient for the past 2 days he has been having shortness of breath he has tried his nebulizer 3 times up at home without any improvement hence prompting his visit to the ED. Patient reports he has been having productive cough, associated with chest pain. Initial vitals BP: 164/70,HR: 84, temp 98.4 F, SpO2 96% on oxygen. blood work showed. WBC 10.2, platelets 309, sodium 142, potassium 4.5, BUN 14, creatinine 1.06, glucose 103, troponin 26, BNP 49.71. Chest x-ray showed mild pulmonary vascular congestion. ABG showed finding suggestive of chronic respiratory acidosis with compensation. Constitutional: Denies fever no chills no feeling of malaise HEENT: Denies headache, ear pain, ear discharges, conjunctivitis, nasal discharge throat pain Cardiovascular: Denies chest pain, palpitation, orthopnea, PND, or pedal edema Respiratory: severe shortness of breath, cough, sputum production, hemoptysis, GI: Denies abdominal pain, nausea, vomiting, diarrhea, hematemesis, hematochezia, : Denies frequency, urgency, hematuria, Endocrine: Denies unintentional weight gain or weight loss, feeling of hot flashes, Stephen: Denies easy bruising, bleeding disorders, epistaxis Musculoskeletal: Denies joint pains, muscle aches Psych: No evidence of depression, raudel, suicidal ideation Skin: eczema, petichial rash Objective vital signs Vital Sign Date Time Temp Pulse Resp B/P (MAP) Pulse Ox O2 Delivery O2 Flow Rate FiO2 04/17/24 14:47 97.7 79 19 149/97 (114) 94 97.7 04/17/24 13:57 Nasal Cannula 3.0 04/17/24 13:57 32 Total Intake and Output 04/16/24 04/16/24 04/17/24 15:00 23:00 07:00 Intake Total 0 ml Output Total 0 ml Balance 0 ml medications Current Medications Medications Dose Ordered Sig/Francis Route Start Time Stop Time Status Last Admin Dose Admin Famotidine 20 mg Q12HR IV 04/16/24 22:00 04/17/24 08:51 20 MG Methylprednisolone Sodium Succinate 40 mg Q8HR IV 04/16/24 22:00 04/17/24 13:26 40 MG Hydralazine HCl 10 mg Q6HP PRN IV 04/16/24 19:00 04/17/24 08:52 10 MG Sodium Chloride 10 ml Q8HR IV 04/16/24 22:00 04/17/24 13:16 10 ML Acetaminophen/ Hydrocodone Bitart 1 tab Q4HP PRN PO 04/16/24 19:00 04/17/24 13:17 1 TAB Ondansetron HCl 4 mg Q4HP PRN IV 04/16/24 19:00 Docusate Sodium 100 mg BIDPRN PRN PO 04/16/24 19:00 Acetaminophen 650 mg Q6HP PRN PO 04/16/24 19:00 04/17/24 01:06 650 MG Morphine Sulfate 2 mg Q4HPRN PRN IV 04/16/24 19:00 Nitroglycerin 0.4 mg Q5MINP PRN SL 04/16/24 21:45 Morphine Sulfate 2 mg Q30M PRN IV 04/16/24 21:45 Albuterol 2.5 mg Q4HR NEB 04/17/24 06:00 04/17/24 13:57 2.5 MG Ipratropium [place] 0.5 mg Q4HR NEB 04/17/24 06:00 04/17/24 13:57 0.5 MG Amlodipine Besylate 10 mg DAILY PO 04/17/24 10:00 04/17/24 13:15 10 MG Enalapril Maleate 20 mg DAILY PO 04/17/24 10:00 04/17/24 13:15 20 MG Furosemide 40 mg BIDD IV 04/17/24 18:00 Hydralazine HCl 25 mg Q12HR PO 04/17/24 22:00 Examination General examination- Morbidly obese male, on 3L of oxygen Severe respiratory distress, restless looking HEENT: PEERLA, no acute nasal discharge Chest: S1-S2 audible, rate and rhythm regular, no murmur Lung: decreased air en, unable to hear because of body habitus Abdomen:distend, BS+,tenderness, no organomegaly Musculoskeletal: no acute joint swelling or tenderness Lower extremity: skin erythema like rashes on the lower extremities, leg edema Neurological: cranial nerves intact, no acute dysarthria or dysphagia Psychiatry-- Normal mood and affect Skin- no acute rash or purpura laboratory and microbiology Laboratory Tests 04/17/24 06:11 Test 04/17/24 06:11 Range/Units Serum Glucose 137 H 74-106 mg/dL Problem List/Assessment/Plan Problem List/Assessment/Plan Asthma exacerbation --> Methylprednisolone ( Solu medrol): 40 mg qhrs -->Albuterol and Impratropim ( Breathing treatment) Acute respiratory failure --> Hypoxic -> Abg: acidosis --> on 3 L Oxygen Hypertension -->Amlodipine --> Enalapril Bradcardia --> Stop Metoprolol Questionable sleep apnea Morbidly obese patient --> BMI: 68 --> recommend outpatient sleep studies to rule out sleep apnea Pulmonary congestion --> Furosemide 40 mg bid Atypical Chest Pain --> Femotidine Code status: Full code Goal of care discussed for more than 45 minute Case and plan discussed with Dr. Tenorio Plan discussed with: Patient My Orders My Orders Orders - KATY RAMIREZ Procedure Category Date Status Time Furosemide Injection PHA 04/17/24 In Process (Lasix Injection) 18:00 Abg W/ Co-Ox RT 04/17/24 Logged 09:48 Date of Service: Apr 17, 2024 Billing Provider: IRASEMA TENORIO MD Common Visit Codes: [id number] INP/OBS CARE(HIGH) KATY RAMIREZ Apr 17, 2024 17:52 IRASEMA TENORIO MD Apr 18, 2024 00:04
[2024-04-17 19:49] LABS: Urine Bacteria None Seen /hpf (None Seen)
[2024-04-17 20:03] LABS: Urine Blood Negative /uL (Negative); Urine Clarity Clear (Clear); Urine Color Colorless (Yellow); Urine Protein, UAD Negative (Negative); Urine Specific Gravity 1.006 (1.001-1.035); Urine Urobilinogen Normal (Negative); Urine WBC 1 /hpf (0 - 3)
[2024-04-17] MEDS: hydrALAZINE HCL 25 MG TAB PO SCH (21:36)
[2024-04-18] VITALS (19 sets, daily range): BP systolic 126–225; BP diastolic 74–109; PULSE 80–117; RESP 14–24; TEMP 97.9–98.2; O2SAT 90–99
--- NOTE | 2024-04-18 10:58 | DVHPN2 ---
Progress Note Date Seen: Apr 18, 2024 Medical Necessity Reason Pt with a Central, PICC or Fol: No Subjective Patient reports: Feels better Other Systems: seen by EP Objective vital signs Vital Sign Date Time Temp Pulse Resp B/P (MAP) Pulse Ox O2 Delivery O2 Flow Rate FiO2 04/18/24 10:08 91 20 99 04/18/24 10:02 Nasal Cannula* 3 32 04/18/24 09:35 225/109 04/18/24 09:00 98.1 98.1 Total Intake and Output 04/17/24 04/17/24 04/18/24 15:00 23:00 07:00 Intake Total 700 ml 200 ml Balance 700 ml 200 ml medications Current Medications Medications Dose Ordered Sig/Francis Route Start Time Stop Time Status Last Admin Dose Admin Famotidine 20 mg Q12HR IV 04/16/24 22:00 04/18/24 09:33 20 MG Methylprednisolone Sodium Succinate 40 mg Q8HR IV 04/16/24 22:00 04/18/24 05:51 40 MG Hydralazine HCl 10 mg Q6HP PRN IV 04/16/24 19:00 04/18/24 09:35 10 MG Sodium Chloride 10 ml Q8HR IV 04/16/24 22:00 04/18/24 05:56 10 ML Acetaminophen/ Hydrocodone Bitart 1 tab Q4HP PRN PO 04/16/24 19:00 04/17/24 13:17 1 TAB Ondansetron HCl 4 mg Q4HP PRN IV 04/16/24 19:00 Docusate Sodium 100 mg BIDPRN PRN PO 04/16/24 19:00 Acetaminophen 650 mg Q6HP PRN PO 04/16/24 19:00 04/17/24 01:06 650 MG Morphine Sulfate 2 mg Q4HPRN PRN IV 04/16/24 19:00 Nitroglycerin 0.4 mg Q5MINP PRN SL 04/16/24 21:45 Morphine Sulfate 2 mg Q30M PRN IV 04/16/24 21:45 Albuterol 2.5 mg Q4HR NEB 04/17/24 06:00 04/18/24 10:02 2.5 MG Ipratropium Merrick 0.5 mg Q4HR NEB 04/17/24 06:00 04/18/24 10:02 0.5 MG Amlodipine Besylate 10 mg DAILY PO 04/17/24 10:00 04/18/24 09:34 10 MG Enalapril Maleate 20 mg DAILY PO 04/17/24 10:00 04/18/24 09:34 20 MG Furosemide 40 mg BIDD IV 04/17/24 18:00 04/18/24 05:53 40 MG Hydralazine HCl 25 mg Q12HR PO 04/17/24 22:00 04/18/24 09:34 25 MG Examination: GENERAL:Abnormal, HEENT:Abnormal, LUNGS:Abnormal, CVS:Abnormal, ABDOMEN:Abnormal laboratory and microbiology Laboratory Tests 04/17/24 06:11 Test 04/17/24 06:11 Range/Units Serum Glucose 137 H 74-106 mg/dL Problem List/Assessment/Plan Problem List/Assessment/Plan massive morbid obesity HTN sinus pause undiagnoed SANJAY sob appreciate EP Recs, outpt fu and sleep study no further inpatient cv recs, will sign off Plan discussed with: Patient Date of Service: Apr 18, 2024 Billing Provider: GUERRERO CHOUDHURY MD Common Visit Codes: NOT BILLABLE GUERRERO CHOUDHURY MD Apr 18, 2024 10:58
[2024-04-18 11:54] LABS: Basophils # (auto) 0 10 ^3/uL (0-0.2); Basophils % (auto) 0.1 % (0.0-2.0); Eosinophils # (auto) 0 10 ^3/uL (0-0.8); Hematocrit 45.9 % (41.0-53.0); Hemoglobin 14.6 g/dL (13.5-17.5); Lymphocytes # (auto) 0.9 10 ^3/uL (0.4-5.4); Lymphocytes % (auto) 4.6 % (10.0-50.0); Mean Corpuscular Hemoglobin 29.1 pg (28.0-32.0); Mean Corpuscular Hgb Conc. 31.8 g/dL (32.0-36.0); Mean Corpuscular Volume 91.4 fL (80.0-100.0); Neutrophils # (auto) 18.2 10 ^3/uL (1.6-8.6); Neutrophils % (auto) 90.3 % (37.0-80.0); Platelet Count (auto) 403 10^3/uL (140-450); Red Blood Cells 5.02 10^6/uL (4.5-5.90); Red Cell Distribution Width 15.7 % (11.8-14.3); White Blood Cell 20.2 10^3/uL (4.4-10.8)
[2024-04-18 12:14] LABS: Albumin 4.3 g/dL (3.2-4.8); Alkaline Phosphatase 86 U/L (46-116); Anion Gap 6 (5-15); Aspartate Aminotransferase 30 U/L (13-40); BUN/Creatinine Ratio 14.7 (10.0-20.0); Bilirubin, Total 0.5 mg/dL (0.2-1.0); Blood Urea Nitrogen 17 mg/dL (9-23); Calcium 10.1 mg/dL (8.7-10.4); Chloride 99 mmol/L (98-107); Potassium 4.3 mmol/L (3.5-5.1); Sodium 140 mmol/L (136-145); Total Protein 7.5 g/dL (5.7-8.2)
[2024-04-18 12:17] LABS: Alanine Aminotransferase 56 U/L (7-40); Carbon Dioxide 35 mmol/L (20-31); Glucose 132 mg/dL (74-106)
--- NOTE | 2024-04-18 15:28 | ECG ---
[facility] Test Date: 2024-04-16 Test Time: 14:05:20 Pat Name: NGOC UMANA Department: ER Room: 0281T Gender: M Information Operator: LARISSA : 1985 Requested By: SLY HOLMAN Order Number: [id number] Reading MD: Measurements Intervals [place] Rate: 78 P: 84 AR: 154 QRS: 70 QRSD: 78 T: 88 QT: 377 QTc: 430 Interpretive Statements Sinus rhythm Low voltage, precordial leads Nonspecific T abnormalities, lateral leads Please click the below link to view image of tracing.
--- NOTE | 2024-04-18 18:05 | DVHDSRES ---
Discharge Summary Date of Admission Resident Creating Document: KATY RAMIREZ RESIDENT Apr 16, 2024 at 21:35 Date of Discharge: Apr 18, 2024 Admitting Diagnosis Increased shortness of breath Labs/Diagnostic Data: Laboratory Results Test 04/18/24 13:46 04/18/24 11:30 04/17/24 19:47 04/17/24 10:10 D-Dimer, Quantitative 4.35 mg/L FEU (0.0-0.49) White Blood Count 20.2 10^3/uL (4.4-10.8) Red Blood Count 5.02 10^6/uL (4.5-5.90) Hemoglobin 14.6 g/dL (13.5-17.5) Hematocrit 45.9 % (41.0-53.0) Mean Corpuscular Volume 91.4 fL (80.0-100.0) Mean Corpuscular Hemoglobin 29.1 pg (28.0-32.0) Mean Corpuscular Hemoglobin Concent 31.8 g/dL (32.0-36.0) Red Cell Distribution Width 15.7 % (11.8-14.3) Platelet Count 403 10^3/uL (140-450) Mean Platelet Volume 7.9 fL (6.9-10.8) Neutrophils (%) (Auto) 90.3 % (37.0-80.0) Lymphocytes (%) (Auto) 4.6 % (10.0-50.0) Monocytes (%) (Auto) 5.0 % (0.0-12.0) Eosinophils (%) (Auto) 0.0 % (0.0-7.0) Basophils (%) (Auto) 0.1 % (0.0-2.0) Neutrophils # (Auto) 18.2 10 ^3/uL (1.6-8.6) Lymphocytes # (Auto) 0.9 10 ^3/uL (0.4-5.4) Monocytes # (Auto) 1.0 10 ^3/uL (0-1.3) Eosinophils # (Auto) 0 10 ^3/uL (0-0.8) Basophils # (Auto) 0 10 ^3/uL (0-0.2) Nucleated Red Blood Cells 0.0 % Sodium Level 140 mmol/L (136-145) Potassium Level 4.3 mmol/L (3.5-5.1) Chloride Level 99 mmol/L (98-107) Carbon Dioxide Level 35 mmol/L (20-31) Anion Gap 6 (5-15) Blood Urea Nitrogen 17 mg/dL (9-23) Creatinine 1.16 mg/dL (0.700-1.30) Glomerular Filtration Rate Calc 83 mL/min (>90) BUN/Creatinine Ratio 14.7 (10.0-20.0) Serum Glucose 132 mg/dL (74-106) Calcium Level 10.1 mg/dL (8.7-10.4) Total Bilirubin 0.5 mg/dL (0.2-1.0) Aspartate Amino Transferase (AST) 30 U/L (13-40) Alanine Aminotransferase (ALT) 56 U/L (7-40) Alkaline Phosphatase 86 U/L (46-116) Total Protein 7.5 g/dL (5.7-8.2) Albumin 4.3 g/dL (3.2-4.8) Urine Color Colorless (Yellow) Urine Clarity Clear (Clear) Urine pH 5.0 (5.0-9.0) Urine Specific [place] 1.006 (1.001-1.035) Urine Protein Negative (Negative) Urine Ketones Negative (Negative) Urine Blood Negative /uL (Negative) Urine Nitrite Negative (Negative) Urine Bilirubin Negative (Negative) Urine Urobilinogen Normal mg/dL (Negative) Urine Leukocyte Esterase Negative /uL (Negative) Urine RBC <1 /hpf (0 - 3) Urine WBC 1 /hpf (0 - 3) Urine Squamous Epithelial Cells Few /hpf (<5) Urine Bacteria None seen /hpf (None Seen) Urine Glucose Normal mg/dL (Normal) Blood Gas Specimen Type Arterial Blood Gas Sample Site Right radial Blood Gas Patient Temperature 37.0 Arterial Blood Date Drawn [id number] Arterial Blood pH 7.339 (7.350-7.450) Arterial Blood Partial Pressure CO2 55.7 mmHg (35.0-48.0) Arterial Blood Partial Pressure O2 77.6 mmHg (83.0-108.0) Arterial Blood HCO3 29.3 mmol/L (21.0-28.0) Arterial Blood Oxygen Saturation 94.9 % (94.0-98.0) Arterial Blood Base Excess 2.1 mmol/L (-2.0-3.0) Arterial Blood Oxyhemoglobin 93.3 % (94.0-98.0) Arterial Blood Carboxyhemoglobin 1.4 % (0.5-1.5) Arterial Blood Methemoglobin 0.3 % (0.0-1.5) Lloyd Test Yes Blood Gas Total Hemoglobin 15.10 g/dL (13.5-17.5) Blood Gas Liter Flow 3.00 Blood Gas Modality Nasal cannula FiO2 % 32.0 Test 04/17/24 06:11 04/16/24 17:35 04/16/24 17:33 04/16/24 14:26 Hemoglobin A1c 5.7 % A1C (<5.7) Influenza Type A Antigen Negative (Negative) Influenza Type B Antigen Negative (Negative) SARS-CoV-2 Antigen (Rapid) Negative (NEGATIVE) Troponin I High Sensitivity 29 ng/L (</=54) B-Type Natriuretic Peptide 49.71 pg/mL (0-100) Other Laboratory Tests 04/18/24 11:30 Brief Hx & Hospital Course: Hospitalization Summary: Mr. Pugh, a 38-year-old male with a history of asthma, eczema, hypertension, diabetes, and hyperlipidemia presented to the ED with severe shortness of breath unrelieved by home nebulizer use. He reported a productive cough and chest pain over the past two days, ABG suggested chronic respiratory acidosis with compensation. The patient denied fever, chills, headache, ear pain, and chest pain but exhibited severe respiratory distress, restlessness, and skin erythema on the lower extremities. Discharging home on 5 days of oral steroid. Medical conditions treated in hospital: #1 Acute Asthma exacerbation status post IV steroid and breathing treatment. #2 Acute hypoxic respiratory failure on 3 L of nasal cannula oxygen weaned to room air. #3 Known asthma and atopic disease. #4 Seasonal allergy, allergies to pet dander. #5 Morbidly obese patient/ BMI: 68 #6 Pulmonary congestion status post Lasix #7 Obesity hypoventilation syndrome/Pickwickian syndrome #8 Sinus bradycardia, asymptomatic health metoprolol. #9 Essential hypertension #10 Known eczema #11 Possible acute bronchitis, viral #12 Reactive leukocytosis due to steroid. Physical Examination (PE): GENERAL APPEARANCE: Well developed, well nourished, alert and cooperative, and appears to be in no acute distress. HEAD: normocephalic. EYES: PERRL, EOMI. Fundi normal, vision is grossly intact. EARS: External auditory canals and tympanic membranes clear, hearing grossly intact. NOSE: No nasal discharge. THROAT: Oral cavity and pharynx normal. No inflammation, swelling, exudate, or lesions. Teeth and gingiva in good general condition. NECK: Neck supple, non-tender without lymphadenopathy, masses or thyromegaly. CARDIAC: Normal S1 and S2. No S3, S4 or murmurs. Rhythm is regular. There is no peripheral edema, cyanosis or pallor. Extremities are warm and well perfused. Capillary refill is less than 2 seconds. No carotid bruits. LUNGS: Clear to auscultation and percussion without rales, rhonchi, wheezing or diminished breath sounds. ABDOMEN: Positive bowel sounds. Soft, nondistended, nontender. No guarding or rebound. No masses. MUSKULOSKELETAL: Adequately aligned spine. ROM intact spine and extremities. No joint erythema or tenderness. Normal muscular development. Normal gait. BACK: Examination of the spine reveals normal gait and posture, no spinal deformity, symmetry of spinal muscles, without tenderness, decreased range of motion or muscular spasm. EXTREMITIES: No significant deformity or joint abnormality. No edema. Peripheral pulses intact. No varicosities. LOWER EXTREMITY: Examination of both feet reveals all toes to be normal in size and symmetry, normal range of motion, normal sensation with distal capillary filling of less than 2 seconds without tenderness, swelling, discoloration, nodules, weakness or deformity; examination of both ankles, knees, legs, and hips reveals normal range of motion, normal sensation without tenderness, swelling, discoloration, crepitus, weakness or deformity. NEUROLOGICAL: CN II-XII intact. Strength and sensation symmetric and intact throughout. Reflexes 2+ throughout. Cerebellar testing normal. SKIN: Skin normal color, texture and turgor with no lesions or eruptions. PSYCHIATRIC: The mental examination revealed the patient was oriented to person, place, and time. The patient was able to demonstrate good judgement and reason, without hallucinations, abnormal affect or abnormal behaviors during the examination. Patient is not suicidal. Case discussed with Dr. Weinberg. Follow up: Patient is agreed to follow PCP in 1-2 weeks of discharge and specialists as needed. Discharge clinic follow up needed, for new PCP and follow up with research environmental engineer. Discharge planning needed total 39 minutes of detailed discussion. The patient and caregiver team agreed to the plan. Consults/Reason for consult Cardiology Operations or Procedures [facility] [id number] [facility] [id number] Ph: [phone] DIAGNOSTIC IMAGING Diagnostic Imaging Report : [id number] Signed PATIENT: NGOC PUGH ACCT: [id number] UNIT: [id number] : 1985 LOC: ER ROOM / BED: / AGE / SEX: 38 / M ADM STATUS: REG ER SERVICE 140 ORDERING PHYSICIAN: SLY MATA MD PROCEDURE(s): CXRP - CHEST PORTABLE REASON: sob ORDER NUMBER(s): [id number], ACCESSION NUMBER(s): [id number] CHEST RADIOGRAPH Indication: sob Technique: Single frontal view of the chest was obtained Comparison: XY CHEST PORTABLE on DOS: 04/07/23 FINDINGS: Lines and Tubes: None Lungs: No focal consolidation. Mild interstitial prominence. Pleura: No effusion. No pneumothorax. Cardiomediastinal contours: Mild cardiomegaly Bones: No acute osseous abnormality. IMPRESSION: Mild pulmonary vascular congestion. ATED BY: KIKI SHARP DO DICTATED DATE/TIME: 04/16/241432 SIGNED BY: KIKI SHARP DO SIGNED DATE/TIME: 04/16/241432 CC: Condition at Discharge: Fair Final Diagnosis/Problems List #1 Acute Asthma exacerbation status post IV steroid and breathing treatment. #2 Acute hypoxic respiratory failure on 3 L of nasal cannula oxygen weaned to room air. #3 Known asthma and atopic disease. #4 Seasonal allergy, allergies to pet dander. #5 Morbidly obese patient/ BMI: 68 Will need Bariatric surgery follow up. #6 Pulmonary congestion status post Lasix #7 Obesity hypoventilation syndrome/Pickwickian syndrome #8 Sinus bradycardia, asymptomatic health metoprolol. #9 Essential hypertension #10 Known eczema #11 Possible acute bronchitis, viral #12 Reactive leukocytosis due to steroid. Discharge Disposition: Home Discharge Instruct/Medications Diet: Cardiac 2g Na,low cholest Activity: No Restrictions, As Tolerated Follow Up/Referral: PCP withing 1 week. Discharge clinic. Establish new PCP. Pulmonology referral needed. Will need Bariatric surgery follow up. Medications: as per JUL 5 days Prednisone 40 mg daily. Discharge Statement: "Patient was advised to return to the ER or call 911 if any headaches, dizziness, shortness of breath, chest pain, abdominal pain, bleeding, fevers, or worsening of medical condition. Patient was counseled about treatment plan, medications, possible side effects, patientverbalized understanding. All questions were answered to the best of my ability. This discharge took greater then 30 minutes in planning, reviewing documentation, counseling the patient, and discussing with other team members." ASSESSMENT ASSESSMENT Assessment RENEE COVARRUBIAS RESIDENT Apr 18, 2024 18:05
[2024-04-18] MEDS ORDERED: PRED20TA2 PO (18:24)
--- NOTE | 2024-04-19 10:41 | DVHINCON2 ---
Date of service: Apr 18, 2024 Referring Physician Medardo Byrd MD Reason for Consultation Asthma exacerbation History of Present Illness A 38-year-old man, morbidly obese, with past medical history of asthma, eczema, and hypertension who presented to ED on 04/16/14 for evaluation of asthma exa cerbation. Patient reported productive cough, associated with chest pain, hypoxic, getting worse that prompted this visit. Workup in ED showed WBC 10.2, platelets 309, sodium 142, potassium 4.5, BUN 14, creatinine 1.06, glucose 103, troponin 26, BNP 49.71. Vitals were blood pressure 164/70, heart rate 84, temperature 98.4 F, O2 saturation 96% on oxygen. Chest x-ray revealed mild p ulmonary vascular congestion. Patient was given IV Solu-Medrol, breathing treatment, supplemental oxygen; and on assessment, he denied chest pain, headache, dizziness, N/V/D, fever or chills. Patient was admitted for further care and pulmonary consultation is requested for evaluation and management due to these findings. Review of Systems: 14-point review of systems negative unless otherwise noted above. Past Medical History: Asthma, eczema, hypertension, morbid obesity. Past Surgical History: None Medications: Reviewed. Allergies: No known drug allergies. Family History: Asthma, DM, hypertension. Social History: Nonsmoker. No alcohol or illicit drug use. Family History: Asthma G8 MOTHER Diabetes mellitus G8 FATHER, Hypertension G8 FATHER, Allergies: Coded Allergies: NO KNOWN ALLERGIES (Unverified , 02/28/13) Home Meds Active Scripts Prednisone (Prednisone) 20 Mg Tab, 40 MG PO DAILY for 5 Days, #10 MG Prov:JAMAL GARCÍA RESIDENT 04/18/24 Reported Medications Fluticasone-Salmeterol (Wixela Inhub 250-50 Mcg/Dose) 1 Aer Aer, 1 PUFF PO BID 08/11/20 Albuterol Sulfate (Albuterol Sulfate Hfa) 108 Mcg/Act Aer, 2 PUFF PO QID PRN for wheezing 08/11/20 Ipratropium-Albuterol (COMBIVENT RESPIMAT) Respimat Aer 08/11/20 Vital Signs Vital Signs Date Time Temp Pulse Resp B/P (MAP) Pulse Ox O2 Delivery O2 Flow Rate FiO2 04/18/24 21:00 98.0 117 14 169/99 (122) 90 98.0 04/18/24 20:00 Room Air* 0 21 Physical Exam Gen.: Patient lying in bed in no apparent distress. Breathing on room air. Head: Normocephalic, atraumatic. Eyes: EOMI/PERRLA. Ears: Normal hearing. Normal anatomy. Neck/trachea: Trachea midline, supple. Nose: Normal external anatomy. Mouth: Moist mucous membranes. Chest: Decreased air entry bilaterally. No wheezing or rhonchi. Cardiovascular: Positive S1, positive S2. Regular rate and rhythm. Abdomen: Positive bowel sounds in all 4 quadrants. Soft, non-tender, non- distended. : Deferred. Rectal: Deferred. Skin: Warm, dry. Intact. Extremities: 2+ radial pulses bilaterally. No lower extremity edema. Neuro: Awake, alert, oriented x3. No gross motor or sensory deficits. Cranial nerves II through XII intact. Gait not assessed. Labs/Diagnostic Data Labs Test 04/18/24 13:46 04/18/24 11:30 04/17/24 19:47 04/17/24 10:10 Range/Units D-Dimer, Quantitative 4.35 H 0.0-0.49 mg/L FEU White Blood Count 20.2 #H 4.4-10.8 10^3/uL Red Blood Count 5.02 4.5-5.90 10^6/uL Hemoglobin 14.6 13.5-17.5 g/dL Hematocrit 45.9 41.0-53.0 % Mean Corpuscular Volume 91.4 80.0-100.0 fL Mean Corpuscular Hemoglobin 29.1 28.0-32.0 pg Mean Corpuscular Hemoglobin Concent 31.8 L 32.0-36.0 g/dL Red Cell Distribution Width 15.7 H 11.8-14.3 % Platelet Count 403 140-450 10^3/uL Mean Platelet Volume 7.9 6.9-10.8 fL Neutrophils (%) (Auto) 90.3 H 37.0-80.0 % Lymphocytes (%) (Auto) 4.6 L 10.0-50.0 % Monocytes (%) (Auto) 5.0 0.0-12.0 % Eosinophils (%) (Auto) 0.0 0.0-7.0 % Basophils (%) (Auto) 0.1 0.0-2.0 % Neutrophils # (Auto) 18.2 H 1.6-8.6 10 ^3/uL Lymphocytes # (Auto) 0.9 0.4-5.4 10 ^3/uL Monocytes # (Auto) 1.0 0-1.3 10 ^3/uL Eosinophils # (Auto) 0 0-0.8 10 ^3/uL Basophils # (Auto) 0 0-0.2 10 ^3/uL Nucleated Red Blood Cells 0.0 % Sodium Level 140 136-145 mmol/L Potassium Level 4.3 3.5-5.1 mmol/L Chloride Level 99 98-107 mmol/L Carbon Dioxide Level 35 H 20-31 mmol/L Anion Gap 6 5-15 Blood Urea Nitrogen 17 9-23 mg/dL Creatinine 1.16 0.700-1.30 mg/dL Glomerular Filtration Rate Calc 83 >90 mL/min BUN/Creatinine Ratio 14.7 10.0-20.0 Serum Glucose 132 H 74-106 mg/dL Calcium Level 10.1 8.7-10.4 mg/dL Total Bilirubin 0.5 0.2-1.0 mg/dL Aspartate Amino Transferase (AST) 30 13-40 U/L Alanine Aminotransferase (ALT) 56 H 7-40 U/L Alkaline Phosphatase 86 46-116 U/L Total Protein 7.5 5.7-8.2 g/dL Albumin 4.3 3.2-4.8 g/dL Urine Color Colorless Yellow Urine Clarity Clear Clear Urine pH 5.0 5.0-9.0 Urine Specific [place] 1.006 1.001-1.035 Urine Protein Negative Negative Urine Ketones Negative Negative Urine Blood Negative Negative /uL Urine Nitrite Negative Negative Urine Bilirubin Negative Negative Urine Urobilinogen Normal Negative mg/dL Urine Leukocyte Esterase Negative Negative /uL Urine RBC <1 0 - 3 /hpf Urine WBC 1 0 - 3 /hpf Urine Squamous Epithelial Cells Few <5 /hpf Urine Bacteria None seen None Seen /hpf Urine Glucose Normal Normal mg/dL Blood Gas Specimen Type Arterial Blood Gas Sample Site Right radial Blood Gas Patient Temperature 37.0 Arterial Blood Date Drawn Arterial Blood pH 7.339 L 7.350-7.450 Arterial Blood Partial Pressure CO2 55.7 H 35.0-48.0 mmHg Arterial Blood Partial Pressure O2 77.6 L 83.0-108.0 mmHg Arterial Blood HCO3 29.3 H 21.0-28.0 mmol/L Arterial Blood Oxygen Saturation 94.9 94.0-98.0 % Arterial Blood Base Excess 2.1 -2.0-3.0 mmol/L Arterial Blood Oxyhemoglobin 93.3 L 94.0-98.0 % Arterial Blood Carboxyhemoglobin 1.4 0.5-1.5 % Arterial Blood Methemoglobin 0.3 0.0-1.5 % Lloyd Test Yes Blood Gas Total Hemoglobin 15.10 13.5-17.5 g/dL Blood Gas Liter Flow 3.00 Blood Gas Modality Nasal cannula FiO2 % 32.0 Test 04/17/24 06:11 04/16/24 17:35 04/16/24 17:33 04/16/24 14:26 Range/Units Hemoglobin A1c 5.7 <5.7 % A1C Influenza Type A Antigen Negative Negative Influenza Type B Antigen Negative Negative SARS-CoV-2 Antigen (Rapid) Negative NEGATIVE Troponin I High Sensitivity 29 </=54 ng/L B-Type Natriuretic Peptide 49.71 0-100 pg/mL Assessment Impression: Acute asthma exacerbation Hypertensive urgency Morbid obesity Plan: Supplemental oxygen PRN Titrate to keep O2 sats above 92%. Continue bronchodilators. Ventolin HFA/nebulizer. Antitussive for cough Incentive spirometry Recommend outpatient followup in Pulmonary Clinic Recommend to obtain outpatient sleep study. Monitor renal function. Monitor electrolytes. Supplement as necessary. Monitor ins and outs. Diet and lifestyle modifications for weight reduction Morbid obesity - complicates all care DVT prophylaxis. Prognosis: Poor given patient's multiple co-morbidities. Rest of plan per hospitalist and other consultants. Thank you Dr. Medardo Byrd MD, for allowing me to participate in this patient's care. Further recommendations will depend on the patient's clinical course. Please do not hesitate to contact me if you have any questions or concerns. This medical document was created using an electronic medical record system with [employer] system. Although these documentations are being carefully reviewed, there may still be some phonetic and typographical changes. The errors are purely typographical, due to imperfection on the software program, and do not reflect any compromise in the patient's medical care. Plan discussed with: Patient, Other (DEJAN Hardy/MD Byrd) HEBER ABREU MD Apr 19, 2024 10:41
== END 2024-04-18 20:30 | disposition home or self-care (01) | DRG 145 ==
LOC: ER 13:43 → TELE 21:35 → TELE-WESTW 23:45
PROVIDERS: ADMIT Student in an Organized Health Care Education/Training Program; ATTEND Student in an Organized Health Care Education/Training Program
DX: J20.8 Acute bronchitis due to other specified organisms (principal); J96.01 Acute respiratory failure with hypoxia; J45.901 Unspecified asthma with (acute) exacerbation; Z68.44 Body mass index [BMI] 60.0-69.9, adult; E66.2 Morbid (severe) obesity with alveolar hypoventilation; E78.5 Hyperlipidemia, unspecified; I16.0 Hypertensive urgency; F17.290 Nicotine dependence, other tobacco product, uncomplicated; Z20.822 Contact with and (suspected) exposure to COVID-19; D72.829 Elevated white blood cell count, unspecified; T38.0X5A Adverse effect of glucocorticoids and synthetic analogues, initial encounter; Z82.5 Family history of asthma and other chronic lower respiratory diseases; Z82.49 Family history of ischemic heart disease and other diseases of the circulatory system; Z83.3 Family history of diabetes mellitus; Y92.89 Other specified places as the place of occurrence of the external cause; Z79.899 Other long term (current) drug therapy
CPT/HCPCS: 36415; 36600; 71045; 80048; 80053; 81001; 82805; 83036; 83880; 84484; 85025; 85379; 87426; 87804; 93005; 93306; 94640; G0378; J3490

== ENCOUNTER 2024-05-13 13:44 | Inpatient (IN) | payer MEDICAID ==
[~2024-05-13] VITALS: Ht 180.3 cm; Wt 207.0 kg
[~2024-05-13 13:44] MED LIST changes: +PRED20TA2 PO
--- NOTE | 2024-05-13 14:00 | ED.PDOC ---
SOB-HPI HPI Comments 38 year old male presents to the ED with chief complaint of SOB. Patient reports that he has been experiencing SOB with associated chest pain for the past 3 days. Patient relays that he has history of asthma and has been intubated before in the past. Patient denies any cough, fever, chills, hemoptysis, dizziness, or N/V. Time Seen by MD: 13:56 Primary Care Provider: NONE Reviewed notes: Nurses Notes, Medications, Allergies Information Source: Patient Mode of Arrival: Wheelchair Severity: Moderate Timing: Days Duration: Since onset Context: At Rest PE Risk Factors: None History of: Asthma Prehospital treatment: Breathing Tx Modifying Factors: Nothing Associated Signs and Symptoms: Chest Pain Quality: Pressure Radiation: No Radiation Location: Substernal Past Medical History PAST MEDICAL HISTORY: Asthma, HTN Surgical History: Denies all surgeries Family History Family History: Reviewed,noncontributory to illness, Unknown Social History Smoker: Secondhand, Other Alcohol: Denies ETOH Use Drugs: Denies Drug Use Lives In: Home Constitutional: denies: chills, diaphoresis, fatigue, fever, malaise, sweats, weakness, others EENTM: denies: blurred vision, double vision, ear bleeding, ear discharge, ear drainage, ear pain, ear ringing, eye pain, eye redness, hearing loss, mouth pain, mouth swelling, nasal discharge, nose bleeding, nose congestion, nose pain, photophobia, tearing, throat pain, throat swelling, voice changes, others Respiratory: reports: shortness of breath; denies: cough, hemoptysis, orthopnea, SOB at rest, SOB with excertion, stridor, wheezing, others Cardiovascular: reports: chest pain; denies: dizzy spells, diaphoresis, Dyspnea on exertion, edema, irregular heart beat, left arm pain, lightheadedness, palpitations, PND, syncope, others Gastrointestinal: denies: abdomen distended, abdominal pain, blood streaked bowels, constipated, diarrhea, dysphagia, difficulty swallowing, hematemesis, melena, nausea, poor appetite, poor fluid intake, rectal bleeding, rectal pain, vomiting, others Genitourinary: denies: burning, dysuria, flank pain, frequency, hematuria, incontinence, penile discharge, penile sore, pain, testicle pain, testicle swelling, urgency, others Neurological: denies: dizziness, fainting, headache, left sided numbness, left sided weakness, numbness, paresthesia, pre-existing deficit, right sided numbness, right sided weakness, seizure, speech problems, tingling, tremors, weakness, others Musculoskeletal: denies: back pain, gout, joint pain, joint swelling, muscle pain, muscle stiffness, neck pain, others Integumetry: denies: bruises, change in color, change in hair/nails, dryness, laceration, lesions, lumps, rash, wounds, others Allergic/Immunocompromised: denies: Difficulty Healing, Frequent Infections, Hives, Itching, others Hematologic/Lymphatic: denies: anemia, blood clots, easy bleeding, easy bruising, swollen glands, others Endocrine: denies: excessive hunger, excessive sweating, excessive thirst, excessive urination, flushing, intolerance to cold, intolerance to heat, unexplained weight gain, unexplained weight loss, others Psychiatric: denies: anxiety, bipolar disorder, depression, hopeless, panic disorder, schizophrenia, sleepless, suicidal, others All Other Systems: Reviewed and Negative Physical Exam General Appearance: No Apparent Distress, Obese HEENT: Normal ENT Inspection, PERRL/EOMI Neck: Full Range of Motion, Non-Tender, Normal, Normal Inspection Respiratory: Chest Non-Tender, Lungs Clear, No Accessory Muscle Use, No Respiratory Distress, Other (Hard to hear breath sounds) Cardiovascular: No Edema, No JVD, No Murmur, No Gallop, Normal Peripheral Pulses, Regular Rate/Rhythm Breast Exam: Deferred Gastrointestinal: No Organomegaly, Non Tender, No Pulsatile Mass, Normal Bowel Sounds, Soft Genitalia: Deferred Pelvic: Deferred Rectal: Deferred Extremities: Leg edema (1+ pitting edema to bilateral lower extremities), No calf tenderness, Normal capillary refill, Normal inspection, Normal range of motion, Non-tender Musculoskeletal : Apperance: Normal Neurologic: Alert, environmental sustainability manager II-XII nml as Tested, No Motor Deficits, Normal Affect, Normal Mood, No Sensory Deficits Cerebellar Function: Normal Reflexes: Normal Skin: Dry, Normal Color, Warm Lymphatic: No Adenopathy Was a procedure done? Was a procedure done?: No Differential Dx Differential Diagnosis: Asthma, Pneumonia, Respiratory Distress X-Ray, Labs, Meds, VS Vital Signs Date Time Temp Pulse Resp B/P (MAP) Pulse Ox O2 Delivery O2 Flow Rate FiO2 05/13/24 14:39 98.3 71 15 138/79 (98) 96 98.3 05/13/24 14:39 71 96 Oxymizer 8 N/A 05/13/24 14:10 Non-Rebreather 15 N/A 05/13/24 14:00 71 05/13/24 13:57 98.2 97 26 137/88 (104) 65 Lab Test 05/13/24 15:45 05/13/24 15:21 05/13/24 14:33 05/13/24 14:29 Range/Units Troponin I High Sensitivity 18 16 </=54 ng/L POC Glucose 123 H 70-106 mg/dl Blood Gas Specimen Type Arterial Blood Gas Sample Site Right radial Blood Gas Patient Temperature 37.0 Arterial Blood Date Drawn [id number] Arterial Blood pH 7.324 L 7.350-7.450 Arterial Blood Partial Pressure CO2 58.8 H 35.0-48.0 mmHg Arterial Blood Partial Pressure O2 81.6 L 83.0-108.0 mmHg Arterial Blood HCO3 29.9 H 21.0-28.0 mmol/L Arterial Blood Oxygen Saturation 95.3 94.0-98.0 % Arterial Blood Base Excess 2.3 -2.0-3.0 mmol/L Arterial Blood Oxyhemoglobin 93.9 L 94.0-98.0 % Arterial Blood Carboxyhemoglobin 1.0 0.5-1.5 % Arterial Blood Methemoglobin 0.5 0.0-1.5 % Lloyd Test Yes Blood Gas Total Hemoglobin 14.90 13.5-17.5 g/dL Blood Gas Liter Flow 6.00 Blood Gas Modality Oxymizer FiO2 % 52.0 White Blood Count 7.3 4.4-10.8 10^3/uL Red Blood Count 4.91 4.5-5.90 10^6/uL Hemoglobin 14.2 13.5-17.5 g/dL Hematocrit 44.8 41.0-53.0 % Mean Corpuscular Volume 91.3 80.0-100.0 fL Mean Corpuscular Hemoglobin 29.0 28.0-32.0 pg Mean Corpuscular Hemoglobin Concent 31.8 L 32.0-36.0 g/dL Red Cell Distribution Width 15.7 H 11.8-14.3 % Platelet Count 291 140-450 10^3/uL Mean Platelet Volume 7.6 6.9-10.8 fL Neutrophils (%) (Auto) 73.5 37.0-80.0 % Lymphocytes (%) (Auto) 16.5 10.0-50.0 % Monocytes (%) (Auto) 9.1 0.0-12.0 % Eosinophils (%) (Auto) 0.3 0.0-7.0 % Basophils (%) (Auto) 0.6 0.0-2.0 % Neutrophils # (Auto) 5.4 1.6-8.6 10 ^3/uL Lymphocytes # (Auto) 1.2 0.4-5.4 10 ^3/uL Monocytes # (Auto) 0.7 0-1.3 10 ^3/uL Eosinophils # (Auto) 0 0-0.8 10 ^3/uL Basophils # (Auto) 0 0-0.2 10 ^3/uL Nucleated Red Blood Cells 0.1 % D-Dimer, Quantitative 0.47 0.0-0.49 mg/L FEU Sodium Level 138 136-145 mmol/L Potassium Level 4.7 3.5-5.1 mmol/L Chloride Level 104 98-107 mmol/L Carbon Dioxide Level 30 20-31 mmol/L Anion Gap 4 L 5-15 Blood Urea Nitrogen 9 9-23 mg/dL Creatinine 0.89 0.700-1.30 mg/dL Glomerular Filtration Rate Calc 113 >90 mL/min BUN/Creatinine Ratio 10.1 10.0-20.0 Serum Glucose 126 H 74-106 mg/dL Calcium Level 9.3 8.7-10.4 mg/dL Total Bilirubin 0.4 0.2-1.0 mg/dL Aspartate Amino Transferase (AST) 15 13-40 U/L Alanine Aminotransferase (ALT) 24 7-40 U/L Alkaline Phosphatase 89 46-116 U/L B-Type Natriuretic Peptide 35.67 0-100 pg/mL Total Protein 6.4 5.7-8.2 g/dL Albumin 3.9 3.2-4.8 g/dL Current Medications Medications (Trade) Dose Ordered Sig/Francis Route Start Time Stop Time Status Last Admin Methylprednisolone Sodium Succinate (Solu Medrol) 125 mg ONCE ONCE IV 05/13/24 14:00 05/13/24 14:01 DC 05/13/24 14:11 Albuterol (Ventolin Medneb) 2.5 mg ONCE ONCE NEB 05/13/24 14:15 05/13/24 14:16 DC 05/13/24 14:10 X-Ray, Labs, Meds, VS Comment I reviewed the following notes from patient's past medical encounters: The following tests were ordered, and results were reviewed by me: (Labs, XY, EKG) Additional Information was gathered from interviewing the following independent historians: (Family, Other Providers, EMT) I reviewed and agreed with the following test results read by other providers: (X-Ray, CT, US) I discussed treatment and results with medical personnel and: (Consultants, Family) Time of 1ST Reevaluation: 14:56 Reevaluation 1ST: Unchanged Patient Education/Counseling: Diagnosis, Treatment Family Education/Counseling: No Family Present Departure 1 Departure Time of Disposition: 17:12 Impression: Primary Impression: Acute hypoxemic respiratory failure Additional Impressions: Acute asthma exacerbation Morbid obesity due to excess calories Disposition: ADMITTED INPATIENT Condition: Guarded Critical Care Note Critical Care Time?: Yes (45 min-critical care time only) Critical care comment: CRITICAL CARE TIME: 45 minutes Treatments/Evaluations: Close monitoring and treatment of unstable vital signs, cardiorespiratory, and neurologic status, while maintaining tight balance of fluid, respiratory, and cardiac interventions. This time includes discussing the case with the patient and the patients family. This time does not include all procedures stated elsewhere in this record. This time also includes reviewing old records, labs and radiological studies. This time includes examining and re- examining the patient. Additionally, this time also includes arranging care with admitting and consulting physicians. Stability Stability form required: No Heart Score Heart Score: Heart Score Response (Comments) Value History N/A 0 EKG N/A 0 Age N/A 0 Risk Factors N/A 0 Troponin N/A 0 Total 0 I personally scribed for ROSA MARIA EDDY MD ([email or web address]) on 05/13/24 at 13:59. Electronically submitted by Clarke Garcia ([email or web address]). ROSA MARIA EDDY MD May 13, 2024 13:59
[2024-05-13] MEDS: IPRATROPIUM BROM 0.5 MG/2.5ML INH SOL ONE ×2 (14:02→19:39)
[2024-05-13] MEDS: ALBUTEROL SULF 2.5 MG/0.5ML(0.5%) NEB SOLN ONE ×2 (14:02→19:39)
[2024-05-13] MEDS: ALBUTEROL SULF 2.5 MG/0.5ML(0.5%) NEB SOLN NEB ONE (14:10)
[2024-05-13] MEDS: methylPREDNISolone SOD SUCC 125 MG/2 ML VL IV ONE (14:11)
--- NOTE | 2024-05-13 14:18 | DVH ---
CHEST RADIOGRAPH Indication: sob Technique: Single frontal view of the chest was obtained COMPARISON: XY CHEST PORTABLE on DOS: 04/16/24, XY CHEST PORTABLE on DOS: 04/07/23 FINDINGS: Lines and Tubes: None Lungs: Mild congestion Pleura: No effusion. No pneumothorax. Cardiomediastinal contours: Unremarkable Bones: Unremarkable IMPRESSION: Mild congestion
[2024-05-13 14:39] VITALS: PULSE 71; O2SAT 96
[2024-05-13 14:41] LABS: Base Excess 2.3 mmol/L (-2.0-3.0)
[2024-05-13 14:45] LABS: Basophils # (auto) 0 10 ^3/uL (0-0.2); Basophils % (auto) 0.6 % (0.0-2.0); Eosinophils # (auto) 0 10 ^3/uL (0-0.8); Eosinophils % (auto) 0.3 % (0.0-7.0); Hematocrit 44.8 % (41.0-53.0); Hemoglobin 14.2 g/dL (13.5-17.5); Lymphocytes # (auto) 1.2 10 ^3/uL (0.4-5.4); Lymphocytes % (auto) 16.5 % (10.0-50.0); Mean Corpuscular Hgb Conc. 31.8 g/dL (32.0-36.0); Mean Corpuscular Volume 91.3 fL (80.0-100.0); Monocytes # (auto) 0.7 10 ^3/uL (0-1.3); Monocytes % (auto) 9.1 % (0.0-12.0); Neutrophils # (auto) 5.4 10 ^3/uL (1.6-8.6); Neutrophils % (auto) 73.5 % (37.0-80.0); Nucleated Red Blood Cells % 0.1 %; Platelet Count (auto) 291 10^3/uL (140-450); Red Blood Cells 4.91 10^6/uL (4.5-5.90); Red Cell Distribution Width 15.7 % (11.8-14.3); White Blood Cell 7.3 10^3/uL (4.4-10.8)
[2024-05-13 15:04] LABS: Alanine Aminotransferase 24 U/L (7-40); Alkaline Phosphatase 89 U/L (46-116); Anion Gap 4 (5-15); Aspartate Aminotransferase 15 U/L (13-40); BUN/Creatinine Ratio 10.1 (10.0-20.0); Blood Urea Nitrogen 9 mg/dL (9-23); Calcium 9.3 mg/dL (8.7-10.4); Carbon Dioxide 30 mmol/L (20-31); Chloride 104 mmol/L (98-107); Potassium 4.7 mmol/L (3.5-5.1); Sodium 138 mmol/L (136-145)
[2024-05-13 15:05] LABS: Albumin 3.9 g/dL (3.2-4.8); Bilirubin, Total 0.4 mg/dL (0.2-1.0); Total Protein 6.4 g/dL (5.7-8.2)
[2024-05-13 15:09] LABS: Glucose 126 mg/dL (74-106)
--- NOTE | 2024-05-13 18:55 | ECG ---
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
[2024-05-13] MEDS ORDERED: DOCUSATE SOD 100 MG CAP PO PRN (19:15)
[2024-05-13 19:39] VITALS: PULSE 92; RESP 22; O2SAT 95
[2024-05-13] MEDS: IPRATROPIUM BROM 0.5 MG/2.5ML INH SOL NEB PRN (19:39)
[2024-05-13] MEDS: ALBUTEROL SULF 2.5 MG/0.5ML(0.5%) NEB SOLN NEB PRN (19:39)
[2024-05-13 19:45] VITALS: PULSE 88; RESP 24; O2SAT 96
[2024-05-13 20:00] VITALS: PULSE 91; O2SAT 98
[2024-05-13] MEDS: SODIUM CHLORIDE 0.9% 1,000 ML IV SCH (20:25)
--- NOTE | 2024-05-13 20:26 | DVHHP2 ---
History of Present Illness Reason for Visit: Acute respiratory failure with hypoxia History of Present Illness The patient is a 38-year-old male severely obese with past medical history of asthma and hypertension who presented to [facility] ED with complaint of shortness of breaths. Patient reports symptoms progressively get worse with hypoxia, associated chest pain, fatigue, generalized weakness, getting worse that prompted this visit. Patient was seen and evaluated in the ED, laboratory data shows WBC 7.3, platelets 291, sodium 138, potassium 4.7, BUN 9, creatinine 0.89, GFR 113, glucose 126, BNP 35.67, troponin 18, blood pressure 180/90 trending down to 138/79, heart rate 92, temperature 98.3 F, O2 saturation 91 % on non-rebreather. Chest x-ray revealing mild congestion. Patient was given IV Solu-Medrol, please see medication orders section in the computer. On my assessment, patient denied chest pain, no headache, no dizziness, no diaphoresis, currently on oxygen, no abdominal pain, no diarrhea, no nausea, no vomiting, no fever, no chills. Patient was admitted for further evaluation and medical management. Past Medical History Asthma, HTN Past Surgical History Denies all surgeries Family History Reviewed, noncontributory to the management of this case. Past Social History The patient lives at home, denies smoking, alcohol or illicit drugs abuse. Review of Systems Constitutional: Yes: Weakness, Other (Fatigue); No: Fever, Chills, Sweats, Malaise Eyes: No: Pain, Vision change, Conjunctivae inflammation, Eyelid inflammation, Other, Redness ENT: No: Ear pain, Ear discharge, Nose pain, Nose discharge, Nose congestion, M outh pain, Mouth swelling, Throat pain, Throat swelling, Other Respiratory: Shortness of breath, SOB with excertion, Other (SOB at rest); No: Cough, Dry, Wheezing, Hemoptysis, Pleuritic Pain, Sputum, Wheezing Cardiovascular: Chest Pain; No: Palpitations, Orthopnea, Paroxysmal Noc. Dyspnea, Edema, Lt Headedness, Other Gastrointestinal: No: Nausea, Vomiting, Abdominal Pain, Diarrhea, Constipation, Melena, Hematochezia, Other Genitourinary: No Dysuria, No Frequency, No Incontinence, No Hematuria, No Retention, No Other Musculoskeletal: No: other, neck pain, shoulder pain, arm pain, back pain, hand pain, leg pain, foot pain Skin: No: Rash, Lesions, Jaundice, Bruising, Other Neurological: No: Weakness, Numbness, Incoordination, Change in speech, Confusion, Seizures, Other Allergies: Coded Allergies: NO KNOWN ALLERGIES (Unverified , 02/28/13) Medications Current Medications Medications Dose Ordered Sig/Francis Route Start Time Stop Time Status Last Admin Dose Admin Albuterol 2.5 mg Q4HPRN PRN NEB 05/13/24 19:15 05/13/24 19:39 2.5 MG Ipratropium [place] 0.5 mg Q4HPRN PRN NEB 05/13/24 19:15 05/13/24 19:39 0.5 MG Methylprednisolone Sodium Succinate 40 mg Q8HR IV 05/13/24 22:00 Famotidine 20 mg Q12HR IV 05/13/24 22:00 Sodium Chloride 1,000 ml @ 60 mls/hr [id number] IV 05/13/24 19:15 05/13/24 20:25 60 MLS/HR Acetaminophen/ Hydrocodone Bitart 1 tab Q4HP PRN PO 05/13/24 19:15 Ondansetron HCl 4 mg Q4HP PRN IV 05/13/24 19:15 Docusate Sodium 100 mg BIDPRN PRN PO 05/13/24 19:15 Acetaminophen 650 mg Q6HP PRN PO 05/13/24 19:15 Exam Vital Signs Vital Signs Date Time Temp Pulse Resp B/P (MAP) Pulse Ox O2 Delivery O2 Flow Rate FiO2 05/13/24 19:45 88 24 96 05/13/24 19:39 Oxymizer 6 N/A 05/13/24 18:10 180/90 (120) 05/13/24 14:39 98.3 98.3 General Appearance: Alert, Oriented X3, Cooperative, No acute distress HEENT: Atraumatic, PERRLA, EOMI, Mucous membr. moist/pink Respiratory: Normal air movement, Other (Diminished breath sounds) Cardiovascular: Regular rate, Normal S1, Normal S2, No murmurs Abdominal: Normal bowel sounds, Soft, No tenderness, No hepatospenomegaly, No masses Extremities: No clubbing, No cyanosis, No edema, Normal pulses, No tenderness/swelling Skin: No rashes, No breakdown, No significant lesion Neuro: Normal speech, Normal tone, Sensation intact, Cranial nerves 3-12 NL, Reflexes 2+, Other (Generalized weakness) Psych/Mental Status: Mental status NL, Mood NL Labs/Xrays Labs Test 05/13/24 17:30 05/13/24 15:21 05/13/24 14:33 05/13/24 14:29 Range/Units Troponin I High Sensitivity 17 </=54 ng/L POC Glucose 123 H 70-106 mg/dl Blood Gas Specimen Type Arterial Blood Gas Sample Site Right radial Blood Gas Patient Temperature 37.0 Arterial Blood Date Drawn [id number] Arterial Blood pH 7.324 L 7.350-7.450 Arterial Blood Partial Pressure CO2 58.8 H 35.0-48.0 mmHg Arterial Blood Partial Pressure O2 81.6 L 83.0-108.0 mmHg Arterial Blood HCO3 29.9 H 21.0-28.0 mmol/L Arterial Blood Oxygen Saturation 95.3 94.0-98.0 % Arterial Blood Base Excess 2.3 -2.0-3.0 mmol/L Arterial Blood Oxyhemoglobin 93.9 L 94.0-98.0 % Arterial Blood Carboxyhemoglobin 1.0 0.5-1.5 % Arterial Blood Methemoglobin 0.5 0.0-1.5 % Lloyd Test Yes Blood Gas Total Hemoglobin 14.90 13.5-17.5 g/dL Blood Gas Liter Flow 6.00 Blood Gas Modality Oxymizer FiO2 % 52.0 White Blood Count 7.3 4.4-10.8 10^3/uL Red Blood Count 4.91 4.5-5.90 10^6/uL Hemoglobin 14.2 13.5-17.5 g/dL Hematocrit 44.8 41.0-53.0 % Mean Corpuscular Volume 91.3 80.0-100.0 fL Mean Corpuscular Hemoglobin 29.0 28.0-32.0 pg Mean Corpuscular Hemoglobin Concent 31.8 L 32.0-36.0 g/dL Red Cell Distribution Width 15.7 H 11.8-14.3 % Platelet Count 291 140-450 10^3/uL Mean Platelet Volume 7.6 6.9-10.8 fL Neutrophils (%) (Auto) 73.5 37.0-80.0 % Lymphocytes (%) (Auto) 16.5 10.0-50.0 % Monocytes (%) (Auto) 9.1 0.0-12.0 % Eosinophils (%) (Auto) 0.3 0.0-7.0 % Basophils (%) (Auto) 0.6 0.0-2.0 % Neutrophils # (Auto) 5.4 1.6-8.6 10 ^3/uL Lymphocytes # (Auto) 1.2 0.4-5.4 10 ^3/uL Monocytes # (Auto) 0.7 0-1.3 10 ^3/uL Eosinophils # (Auto) 0 0-0.8 10 ^3/uL Basophils # (Auto) 0 0-0.2 10 ^3/uL Nucleated Red Blood Cells 0.1 % D-Dimer, Quantitative 0.47 0.0-0.49 mg/L FEU Sodium Level 138 136-145 mmol/L Potassium Level 4.7 3.5-5.1 mmol/L Chloride Level 104 98-107 mmol/L Carbon Dioxide Level 30 20-31 mmol/L Anion Gap 4 L 5-15 Blood Urea Nitrogen 9 9-23 mg/dL Creatinine 0.89 0.700-1.30 mg/dL Glomerular Filtration Rate Calc 113 >90 mL/min BUN/Creatinine Ratio 10.1 10.0-20.0 Serum Glucose 126 H 74-106 mg/dL Calcium Level 9.3 8.7-10.4 mg/dL Total Bilirubin 0.4 0.2-1.0 mg/dL Aspartate Amino Transferase (AST) 15 13-40 U/L Alanine Aminotransferase (ALT) 24 7-40 U/L Alkaline Phosphatase 89 46-116 U/L B-Type Natriuretic Peptide 35.67 0-100 pg/mL Total Protein 6.4 5.7-8.2 g/dL Albumin 3.9 3.2-4.8 g/dL PATIENT: NGOC UMANA ACCT: [id number] UNIT: [id number] : 1985 LOC: ER ROOM / BED: / AGE / SEX: 38 / M ADM STATUS: REG ER SERVICE [id number] ORDERING PHYSICIAN: ROSA MARIA EDDY MD PROCEDURE(s): CXRP - CHEST PORTABLE REASON: sob ORDER NUMBER(s): [id number], ACCESSION NUMBER(s): [id number] CHEST RADIOGRAPH Indication: sob Technique: Single frontal view of the chest was obtained COMPARISON: XY CHEST PORTABLE on DOS: 04/16/24, XY CHEST PORTABLE on DOS: 04/07/23 FINDINGS: Lines and Tubes: None Lungs: Mild congestion Pleura: No effusion. No pneumothorax. Cardiomediastinal contours: Unremarkable Bones: Unremarkable IMPRESSION: Mild congestion Assessment/Plan Assessment/Plan Acute hypoxemic respiratory failure Acute asthma exacerbation Hypertensive urgency Morbid obesity due to excess calories Plan 1. Admit to telemetry unit 2. Breathing treatment 3. Pain control management 4. Management of fluids and electrolytes 5. Consultation for pulmonology 6. Diagnostic tests chest x-ray 7. DVT prophylaxis-on aspirin 8. Repeat labs CBC, CMP in a.m. 9. Continue with current medical management 10. Treatment plan discussed with patient and RN. Patient verbalized understanding. Plan discussed with: Patient, Other (RN) My Orders Orders - BRADY STERN DNP Procedure Category Date Status Time *Consult CONS 05/13/24 Transmitted / 19:11 Albuterol Medneb PHA 05/13/24 In Process (Ventolin Medneb) 19:15 Ipratropium Medneb PHA 05/13/24 In Process (Atrovent Medneb) 19:15 Methylprednisolone PHA 05/13/24 In Process Sod Succ (Solu Medrol 22:00 Famotidine Injection PHA 05/13/24 In Process (Pepcid Injection) 22:00 Allergies FREDO 05/13/24 In Process 19:11 Code Status CODE 05/13/24 Transmitted 19:11 Sodium Chloride 0.9% PHA 05/13/24 In Process 19:15 Oxygen Per Hour RT 05/13/24 Transmitted 19:11 Hydrocodone-Acet PHA 05/13/24 In Process 5/325mg Tab ([place] 19:15 Ondansetron Hcl PHA 05/13/24 In Process (Zofran) 19:15 Docusate Sodium PHA 05/13/24 In Process Capsule (Colace 19:15 Complete Blood Count LAB 05/14/24 Verified 04:00 Comprehensive LAB 05/14/24 Verified Metabolic Panel 04:00 Cardiac DIET 05/14/24 Transmitted Diet-2gna,Lofat,Lochol Breakfast Condition: Serious FREDO 05/13/24 In Process 19:11 Acetaminophen Tablet PHA 05/13/24 In Process (Tylenol Tablet) 19:15 Bedrest With Bathroom FREDO 05/13/24 In Process Privileg 19:11 Sequential [facility] 05/13/24 In Process Compression Device Magnesium LAB 05/13/24 In Process 19:11 Admit ADMIT 05/13/24 Verified 20:24 Nitroglycerin [facility] 05/13/24 Verified Sublingual (Ntrostat 20:30 Morphine Sulfate [facility] 05/13/24 Verified Injection 20:30 Notify Of Changes [facility] 05/13/24 Verified From Base 20:24 Dividend Deposit Voucher Clerk For [facility] 05/13/24 Verified 24 Hours 20:24 Emergency Dysrhythmia [facility] 05/13/24 Verified Protocol 20:24 Rhythm Strips Once [facility] 05/13/24 Verified Every Shift 20:24 Oxygen By Nasal RT 05/13/24 Verified Cannula 20:24 Problem List: (1) Acute hypoxemic respiratory failure (2) Acute asthma exacerbation (3) Hypertensive urgency (4) Morbid obesity due to excess calories Date of Service: May 13, 2024 Billing Provider: BRADY STERN DNP Common Visit Codes: [id number] INP/OBS CARE (HIGH) BRADY STERN DNP May 13, 2024 20:26
[2024-05-13] MEDS ORDERED: MORPHINE SULFATE INJ 2 MG/ml SYRG IV PRN (20:30)
[2024-05-13] MEDS ORDERED: NITROGLYCERIN 0.4 MG SL TAB SL PRN (20:30)
[2024-05-13 21:18] VITALS: BP 180/90; PULSE 91; RESP 24; TEMP 98.3; O2SAT 98
--- NOTE | 2024-05-13 22:27 | DVHINCON2 ---
Date of service: May 13, 2024 Referring Physician Jc Kuhn NP Reason for Consultation Acute hypoxic respiratory failure, asthma exacerbation History of Present Illness A 38-year-old man, severely obese with past medical history of asthma and hypertension, who presented to ED today with complaint of shortness of breath. Patient reports symptoms progressively got worse with hypoxia, associated chest pain, fatigue, generalized weakness, getting worse that prompted this visit. ED workup shows WBC 7.3, platelets 291, sodium 138, potassium 4.7, BUN 9, creatinine 0.89, GFR 113, glucose 126, BNP 35.67, troponin 18. Blood pressure 180/90 trending down to 138/79, heart rate 92, temperature 98.3 F, O2 saturation 91 % on non-rebreather. Chest x-ray revealing mild congestion. P atient was admitted for further care and pulmonary consultation is requested for evaluation and management d/t the above findings. Review of Systems: 14-point review of systems negative unless otherwise noted above. Past Medical History: Asthma and hypertension Past Surgical History: None Medications: Reviewed. Allergies: No known drug allergies. Family History: Asthma, DM, HTN. Social History: Nonsmoker. No alcohol or illicit drug use. Family History: Asthma G8 MOTHER Diabetes mellitus G8 FATHER, Hypertension G8 FATHER, Allergies: Coded Allergies: NO KNOWN ALLERGIES (Unverified , 02/28/13) Home Meds Active Scripts Prednisone (Prednisone) 20 Mg Tab, 40 MG PO DAILY for 5 Days, #10 MG Prov:AMARILISPAWELJAMAL RESIDENT 04/18/24 Reported Medications Metoprolol Tartrate (LOPRESSOR TABLET) 50 Mg Tb, 1 TAB PO BID, #60 TAB 5 Refills 05/14/24 Amlodipine Besylate (Amlodipine Besylate) 10 Mg Tab, 1 TAB PO DAILY, #30 TAB 5 Refills 05/14/24 Losartan Potassium (Losartan Potassium) 25 Mg Tab, 1 TAB PO DAILY, #90 TAB 1 Refill 05/14/24 Albuterol Sulfate (Albuterol Sulfate Hfa) 108 Mcg/Act Aer, 2 PUFF PO QID PRN for wheezing 08/11/20 Ipratropium-Albuterol (COMBIVENT RESPIMAT) Respimat Aer 08/11/20 Current Medications Current Medications Medications (Trade) Dose Ordered Sig/Francis Route PRN Reason Start Time Stop Time Status Last Admin Albuterol (Ventolin Medneb) 2.5 mg Q4HPRN PRN NEB SHORTNESS OF BREATH 05/13/24 19:15 05/13/24 19:39 Ipratropium [place] (Atrovent Medneb) 0.5 mg Q4HPRN PRN NEB SHORTNESS OF BREATH 05/13/24 19:15 05/13/24 19:39 Methylprednisolone Sodium Succinate (Solu Medrol) 40 mg Q8HR IV 05/13/24 22:00 Famotidine (Pepcid Injection) 20 mg Q12HR IV 05/13/24 22:00 Sodium Chloride 1,000 ml @ 60 mls/hr [id number] IV 05/13/24 19:15 05/13/24 20:25 Acetaminophen/ Hydrocodone Bitart ([place] 5/325MG Tab) 1 tab Q4HP PRN PO MODERATE PAIN (4-6 PAIN SCALE) 05/13/24 19:15 Ondansetron HCl (Zofran) 4 mg Q4HP PRN IV NAUSEA / VOMITING 05/13/24 19:15 Docusate Sodium (Colace Capsule) 100 mg BIDPRN PRN PO FOR CONSTIPATION 05/13/24 19:15 Acetaminophen (Tylenol Tablet) 650 mg Q6HP PRN PO PAIN SCALE 1-3 OR TEMP>100.4 05/13/24 19:15 Nitroglycerin (Ntrostat Sublingual) 0.4 mg Q5MINP PRN SL FOR CHEST PAIN 05/13/24 20:30 Morphine Sulfate 2 mg Q30M PRN IV FOR CHEST PAIN 05/13/24 20:30 Hydralazine HCl (Apresoline Injection) 10 mg Q6HP PRN IV SBP>150 05/13/24 22:00 Vital Signs Vital Signs Date Time Temp Pulse Resp B/P (MAP) Pulse Ox O2 Delivery O2 Flow Rate FiO2 05/13/24 22:13 99.3 67 17 165/84 (111) 95 99.3 05/13/24 21:18 6.0 52 05/13/24 20:00 Oxymizer Physical Exam Gen.: Patient lying in bed in no apparent distress. On supplemental oxygen. Head: Normocephalic, atraumatic. Eyes: EOMI/PERRLA. Ears: Normal hearing. Normal anatomy. Neck/trachea: Trachea midline, supple. Nose: Normal external anatomy. Mouth: Moist mucous membranes. Chest: Decreased air entry bilaterally. No wheezing or rhonchi. Cardiovascular: Positive S1, positive S2. Regular rate and rhythm. Abdomen: Positive bowel sounds in all 4 quadrants. Soft, non-tender, non- distended. : Deferred. Rectal: Deferred. Skin: Warm, dry. Intact. Extremities: 2+ radial pulses bilaterally. No lower extremity edema. Neuro: Awake, alert, oriented x3. No gross motor or sensory deficits. Cranial nerves II through XII intact. Gait not assessed. Labs/Diagnostic Data Labs Test 05/13/24 22:12 05/13/24 17:30 05/13/24 14:33 05/13/24 14:29 Range/Units POC Glucose 163 H 70-106 mg/dl Magnesium Level 2.0 1.6-2.6 mg/dL Troponin I High Sensitivity 17 </=54 ng/L Blood Gas Specimen Type Arterial Blood Gas Sample Site Right radial Blood Gas Patient Temperature 37.0 Arterial Blood Date Drawn [id number] Arterial Blood pH 7.324 L 7.350-7.450 Arterial Blood Partial Pressure CO2 58.8 H 35.0-48.0 mmHg Arterial Blood Partial Pressure O2 81.6 L 83.0-108.0 mmHg Arterial Blood HCO3 29.9 H 21.0-28.0 mmol/L Arterial Blood Oxygen Saturation 95.3 94.0-98.0 % Arterial Blood Base Excess 2.3 -2.0-3.0 mmol/L Arterial Blood Oxyhemoglobin 93.9 L 94.0-98.0 % Arterial Blood Carboxyhemoglobin 1.0 0.5-1.5 % Arterial Blood Methemoglobin 0.5 0.0-1.5 % Lloyd Test Yes Blood Gas Total Hemoglobin 14.90 13.5-17.5 g/dL Blood Gas Liter Flow 6.00 Blood Gas Modality Oxymizer FiO2 % 52.0 White Blood Count 7.3 4.4-10.8 10^3/uL Red Blood Count 4.91 4.5-5.90 10^6/uL Hemoglobin 14.2 13.5-17.5 g/dL Hematocrit 44.8 41.0-53.0 % Mean Corpuscular Volume 91.3 80.0-100.0 fL Mean Corpuscular Hemoglobin 29.0 28.0-32.0 pg Mean Corpuscular Hemoglobin Concent 31.8 L 32.0-36.0 g/dL Red Cell Distribution Width 15.7 H 11.8-14.3 % Platelet Count 291 140-450 10^3/uL Mean Platelet Volume 7.6 6.9-10.8 fL Neutrophils (%) (Auto) 73.5 37.0-80.0 % Lymphocytes (%) (Auto) 16.5 10.0-50.0 % Monocytes (%) (Auto) 9.1 0.0-12.0 % Eosinophils (%) (Auto) 0.3 0.0-7.0 % Basophils (%) (Auto) 0.6 0.0-2.0 % Neutrophils # (Auto) 5.4 1.6-8.6 10 ^3/uL Lymphocytes # (Auto) 1.2 0.4-5.4 10 ^3/uL Monocytes # (Auto) 0.7 0-1.3 10 ^3/uL Eosinophils # (Auto) 0 0-0.8 10 ^3/uL Basophils # (Auto) 0 0-0.2 10 ^3/uL Nucleated Red Blood Cells 0.1 % D-Dimer, Quantitative 0.47 0.0-0.49 mg/L FEU Sodium Level 138 136-145 mmol/L Potassium Level 4.7 3.5-5.1 mmol/L Chloride Level 104 98-107 mmol/L Carbon Dioxide Level 30 20-31 mmol/L Anion Gap 4 L 5-15 Blood Urea Nitrogen 9 9-23 mg/dL Creatinine 0.89 0.700-1.30 mg/dL Glomerular Filtration Rate Calc 113 >90 mL/min BUN/Creatinine Ratio 10.1 10.0-20.0 Serum Glucose 126 H 74-106 mg/dL Calcium Level 9.3 8.7-10.4 mg/dL Total Bilirubin 0.4 0.2-1.0 mg/dL Aspartate Amino Transferase (AST) 15 13-40 U/L Alanine Aminotransferase (ALT) 24 7-40 U/L Alkaline Phosphatase 89 46-116 U/L B-Type Natriuretic Peptide 35.67 0-100 pg/mL Total Protein 6.4 5.7-8.2 g/dL Albumin 3.9 3.2-4.8 g/dL Assessment Impression: Acute hypoxic respiratory failure Acute on chronic hypercarbic respiratory failure Dependence on supplemental oxygen Acute exacerbation asthma Morbid obesity BMI 65.8 Likely obstructive sleep apnea Plan: Supplemental oxygen 8 LPM Oxymizer Titrate to keep O2 sats 88-94%. Taper O2 as tolerated. CXR reviewed, mild pulmonary vascular congestion. Continue bronchodilators. IV steroids Monitor renal function. Monitor electrolytes. Supplement as necessary. Monitor ins and outs. Diet and lifestyle modifications for weight reduction Morbid obesity - complicates all care GI prophylaxis- Pepcid DVT prophylaxis. Prognosis: Poor given patient's multiple co-morbidities. Condition: Critical Rest of plan per hospitalist and other consultants. A total of 35 minutes of critical care time was spent reviewing the patient record, examining the patient, making a diagnostic and therapeutic plan, discussing this plan with the medical personnel, following up on diagnostic studies and following the patient for clinical stability excluding any and all procedures. At least 50% of this time was spent in direct, [id number] contact Thank you, NORMA Kuhn, for allowing me to participate in this patient's care. Further recommendations will depend on the patient's clinical course. Please do not hesitate to contact me if you have any questions or concerns. This medical document was created using an electronic medical record system with [employer] dictation system. Although these documentations are being carefully reviewed, there may still be some phonetic and typographical changes. The errors are purely typographical, due to imperfection on the software program, and do not reflect any compromise in the patient's medical care. Plan discussed with: Patient, Other (RN/NORMA Kuhn/) HEBER ABREU MD May 13, 2024 22:27
[2024-05-13] MEDS: hydrALAZINE HCL 20 MG/ML VL IV PRN (22:33)
[2024-05-13] MEDS: methylPREDNISolone SOD SUCC 40 MG/ML VL IV SCH (22:33)
[2024-05-13] MEDS: FAMOTIDINE (10MG/ML) 2ML VL IV SCH (22:34)
[2024-05-14] VITALS (16 sets, daily range): BP systolic 121–172; BP diastolic 73–92; PULSE 55–84; RESP 19–22; TEMP 97.8–98.7; O2SAT 91–100
[2024-05-14] MEDS: amLODIPine BESYLATE 5 MG TAB PO ONE (01:28)
[2024-05-14] MEDS: cloNIDine HCL 0.1 MG TAB PO ONE (01:33)
[2024-05-14] MEDS ORDERED: AMLO1TAB23 PO (03:19)
[2024-05-14] MEDS ORDERED: LOSA-533 PO (03:19)
[2024-05-14] MEDS ORDERED: MET50T PO (03:19)
[2024-05-14] MEDS: HYDROcodone-ACET 5/325MG TAB PO PRN (08:07)
[2024-05-14] MEDS: ONDANSETRON HCL 4 MG/2 ML VIAL IV PRN (08:19)
[2024-05-14] MEDS: METOPROLOL TARTRATE 50 MG TAB PO SCH (10:04)
[2024-05-14] MEDS: LOSARTAN POTASSIUM 50 MG TAB PO SCH (10:05)
[2024-05-14 10:44] LABS: Basophils # (auto) 0 10 ^3/uL (0-0.2); Basophils % (auto) 0.3 % (0.0-2.0); Eosinophils # (auto) 0 10 ^3/uL (0-0.8); Hematocrit 46.4 % (41.0-53.0); Hemoglobin 14.9 g/dL (13.5-17.5); Lymphocytes # (auto) 0.8 10 ^3/uL (0.4-5.4); Lymphocytes % (auto) 8.9 % (10.0-50.0); Mean Corpuscular Hemoglobin 29.3 pg (28.0-32.0); Mean Corpuscular Hgb Conc. 32.1 g/dL (32.0-36.0); Mean Corpuscular Volume 91.3 fL (80.0-100.0); Monocytes # (auto) 0.4 10 ^3/uL (0-1.3); Monocytes % (auto) 4.5 % (0.0-12.0); Neutrophils # (auto) 7.5 10 ^3/uL (1.6-8.6); Neutrophils % (auto) 86.3 % (37.0-80.0); Platelet Count (auto) 339 10^3/uL (140-450); Red Blood Cells 5.08 10^6/uL (4.5-5.90); Red Cell Distribution Width 15.5 % (11.8-14.3); White Blood Cell 8.7 10^3/uL (4.4-10.8)
[2024-05-14 10:55] LABS: Alanine Aminotransferase 20 U/L (7-40); Albumin 4.3 g/dL (3.2-4.8); Alkaline Phosphatase 95 U/L (46-116); Anion Gap 3 (5-15); BUN/Creatinine Ratio 9.8 (10.0-20.0); Calcium 9.6 mg/dL (8.7-10.4); Chloride 100 mmol/L (98-107)
[2024-05-14 10:56] LABS: Bilirubin, Total 0.5 mg/dL (0.2-1.0); Total Protein 7.5 g/dL (5.7-8.2)
[2024-05-14 10:59] LABS: Aspartate Aminotransferase 11 U/L (13-40); Blood Urea Nitrogen 9 mg/dL (9-23); Carbon Dioxide 32 mmol/L (20-31); Glucose 163 mg/dL (74-106); Potassium 5.1 mmol/L (3.5-5.1); Sodium 135 mmol/L (136-145)
--- NOTE | 2024-05-14 12:10 | DVHPN2 ---
Reviewed: Care Plan, H&P, Labs, Medications, Previous Orders, Radiology Changes from previous H/P or p: No Changes Eyes: No Pain, No Vision change, No Conjunctivae inflammation, No Eyelid inflammation, No Other, No Redness ENT: No Ear pain, No Ear discharge, No Nose pain, No Nose discharge, No Nose congestion, No Mouth pain, No Mouth swelling, No Throat pain, No Throat swelling, No Other Cardiovascular: Chest Pain; No Palpitations, No Orthopnea, No Paroxysmal Noc. Dyspnea, No Edema, No Lt Headedness, No Other Respiratory: No Cough, No Dry; Shortness of breath, SOB with excertion; No Wheezing, No Hemoptysis, No Pleuritic Pain, No Sputum; Other (SOB at rest) Gastrointestinal: No Nausea, No Vomiting, No Abdominal Pain, No Diarrhea, No Constipation, No Melena, No Hematochezia, No Other Genitourinary: No Dysuria, No Frequency, No Incontinence, No Hematuria, No Retention, No Other Musculoskeletal: No other, No neck pain, No shoulder pain, No arm pain, No back pain, No hand pain, No leg pain, No foot pain Skin: No Rash, No Lesions, No Jaundice, No Bruising, No Other Objective Vitals Vital Signs Date Time Temp Pulse Resp B/P (MAP) Pulse Ox O2 Delivery O2 Flow Rate FiO2 05/14/24 10:05 128/76 05/14/24 10:04 79 05/14/24 10:00 94 Oxymizer 8.0 05/14/24 10:00 N/A 05/14/24 09:00 98.7 22 98.7 Intake/Output Intake and Output 05/14/24 07:00 Intake Total 0 ml Balance 0 ml Intake Oral 0 ml # Voids 1 Medications Current Medications Medications Dose Ordered Sig/Francis Route Start Time Stop Time Status Last Admin Dose Admin Albuterol 2.5 mg Q4HPRN PRN NEB 05/13/24 19:15 05/13/24 19:39 2.5 MG Ipratropium [place] 0.5 mg Q4HPRN PRN NEB 05/13/24 19:15 05/13/24 19:39 0.5 MG Methylprednisolone Sodium Succinate 40 mg Q8HR IV 05/13/24 22:00 05/14/24 05:41 40 MG Famotidine 20 mg Q12HR IV 05/13/24 22:00 05/14/24 10:05 20 MG Sodium Chloride 1,000 ml @ 60 mls/hr [id number] IV 05/13/24 19:15 05/13/24 20:25 60 MLS/HR Acetaminophen/ Hydrocodone Bitart 1 tab Q4HP PRN PO 05/13/24 19:15 05/14/24 08:07 1 TAB Ondansetron HCl 4 mg Q4HP PRN IV 05/13/24 19:15 05/14/24 08:19 4 MG Docusate Sodium 100 mg BIDPRN PRN PO 05/13/24 19:15 Acetaminophen 650 mg Q6HP PRN PO 05/13/24 19:15 Nitroglycerin 0.4 mg Q5MINP PRN SL 05/13/24 20:30 Morphine Sulfate 2 mg Q30M PRN IV 05/13/24 20:30 Hydralazine HCl 10 mg Q6HP PRN IV 05/13/24 22:00 05/14/24 05:41 10 MG Losartan Potassium 100 mg DAILY PO 05/14/24 10:00 05/14/24 10:05 100 MG Amlodipine Besylate 10 mg DAILY PO 05/15/24 10:00 Metoprolol Tartrate 50 mg BID PO 05/14/24 10:00 05/14/24 10:04 50 MG Laboratory Results Laboratory Tests 05/14/24 10:07 Chemistry Test 05/13/24 14:29 05/13/24 17:30 05/14/24 10:07 Albumin 3.9 g/dL (3.2-4.8) 4.3 g/dL (3.2-4.8) Calcium Level 9.3 mg/dL (8.7-10.4) 9.6 mg/dL (8.7-10.4) Total Protein 6.4 g/dL (5.7-8.2) 7.5 g/dL (5.7-8.2) Magnesium Level 2.0 mg/dL (1.6-2.6) Coagulation Test 05/13/24 14:29 D-Dimer, Quantitative 0.47 mg/L FEU (0.0-0.49) Cardiac Markers Test 05/13/24 14:29 B-Type Natriuretic Peptide 35.67 pg/mL (0-100) LFT Test 05/13/24 14:29 05/14/24 10:07 Alanine Aminotransferase (ALT) 24 U/L (7-40) 20 U/L (7-40) Alkaline Phosphatase 89 U/L (46-116) 95 U/L (46-116) Aspartate Amino Transferase (AST) 15 U/L (13-40) 11 U/L (13-40) L Total Bilirubin 0.4 mg/dL (0.2-1.0) 0.5 mg/dL (0.2-1.0) Blood Gas Results Test 05/13/24 14:33 Arterial Blood pH 7.324 (7.350-7.450) FiO2 % 52.0 Labs and/or images reviewed: Labs reviewed by me, Image(s) reviewed by me Assessment/Plan Assessment/Plan Acute hypoxic respiratory failure: Oxygen 8 liters/minute by Oxymizer, pulmonary consult by Dr. Chavez appreciated Acute on chronic hypercarbic respiratory failure: Albuterol Atrovent Solu-Medrol Possible community-acquired pneumonia: Zosyn Dependence on supplemental oxygen Acute exacerbation asthma Morbid obesity BMI 65.8 Likely obstructive sleep apnea Chest x-ray negative Morbid obesity BMI of 65 Patient lives in [place] Time spent 55 minutes Advanced care planning time 20 minutes Patient is full code Plan discussed with: Patient Date of Service: May 14, 2024 Billing Provider: REBEKAH MCKEON MD Common Visit Codes: [id number] INP/OBS CARE(HIGH) Secondary Visit Codes: [id number] CARE PLAN 30 MINUTES REBEKAH MCKEON MD May 14, 2024 12:10
[2024-05-14] MEDS: PIPERACILLIN-TAZOB 3.375GM 100 ML IV SCH (13:24)
[2024-05-14 13:48] LABS: COVID19 ANTIGEN SOFIA FIA NEGATIVE (NEGATIVE)
[2024-05-14 13:49] LABS: Rapid Influenza A Negative (Negative); Rapid Influenza B Negative (Negative)
[2024-05-14 16:25] LABS: Base Excess 1.2 mmol/L (-2.0-3.0)
--- NOTE | 2024-05-14 16:58 | DVH ---
CHEST RADIOGRAPH Indication: hypoxia Technique: Single frontal view of the chest was obtained Comparison: XY CHEST PORTABLE on DOS: 05/13/24, XY CHEST PORTABLE on DOS: 04/16/24, XY CHEST PORTABLE on DOS: 04/07/23 FINDINGS: Lines and Tubes: None Lungs: Right-sided perihilar infiltrate with extension in the right lower lobe. Pleura: No effusion. No pneumothorax. Cardiomediastinal contours: Unremarkable Bones: No acute osseous abnormality. IMPRESSION: 1. Right perihilar and right lower lobe airspace disease.
--- NOTE | 2024-05-14 17:32 | DVHPN2 ---
Progress Note - Dictate Date Seen: May 14, 2024 Medical Necessity Reason Pt with a Central, PICC or Fol: No Subjective Patient seen and examined at bedside. Remains on supplemental oxygen Overnight events reviewed. vital signs Vital Sign Date Time Temp Pulse Resp B/P (MAP) Pulse Ox O2 Delivery O2 Flow Rate FiO2 05/14/24 16:53 98.6 56 20 121/73 (89) 94 98.6 05/14/24 15:10 Facial BiPAP Mask 50 05/14/24 14:56 5 Total Intake and Output 05/13/24 05/13/24 05/14/24 15:00 23:00 07:00 Intake Total 0 ml Balance 0 ml medications Current Medications Medications Dose Ordered Sig/Francis Route Start Time Stop Time Status Last Admin Dose Admin Albuterol 2.5 mg Q4HPRN PRN NEB 05/13/24 19:15 05/14/24 14:56 2.5 MG Ipratropium [place] 0.5 mg Q4HPRN PRN NEB 05/13/24 19:15 05/14/24 14:56 0.5 MG Methylprednisolone Sodium Succinate 40 mg Q8HR IV 05/13/24 22:00 05/14/24 13:24 40 MG Famotidine 20 mg Q12HR IV 05/13/24 22:00 05/14/24 10:05 20 MG Sodium Chloride 1,000 ml @ 60 mls/hr [id number] IV 05/13/24 19:15 05/14/24 13:42 60 MLS/HR Acetaminophen/ Hydrocodone Bitart 1 tab Q4HP PRN PO 05/13/24 19:15 05/14/24 08:07 1 TAB Ondansetron HCl 4 mg Q4HP PRN IV 05/13/24 19:15 05/14/24 08:19 4 MG Docusate Sodium 100 mg BIDPRN PRN PO 05/13/24 19:15 Acetaminophen 650 mg Q6HP PRN PO 05/13/24 19:15 Nitroglycerin 0.4 mg Q5MINP PRN SL 05/13/24 20:30 Morphine Sulfate 2 mg Q30M PRN IV 05/13/24 20:30 Hydralazine HCl 10 mg Q6HP PRN IV 05/13/24 22:00 05/14/24 05:41 10 MG Losartan Potassium 100 mg DAILY PO 05/14/24 10:00 05/14/24 10:05 100 MG Amlodipine Besylate 10 mg DAILY PO 05/15/24 10:00 Metoprolol Tartrate 50 mg BID PO 05/14/24 10:00 05/14/24 10:04 50 MG Piperacillin Sod/ Tazobactam Sod 100 ml @ 25 mls/hr Q8HR IV 05/14/24 14:00 05/14/24 13:24 25 MLS/HR objective Gen.: Patient lying in bed in no apparent distress. On supplemental oxygen. Head: Normocephalic, atraumatic. Eyes: EOMI/PERRLA. Ears: Normal hearing. Normal anatomy. Neck/trachea: Trachea midline, supple. Nose: Normal external anatomy. Mouth: Moist mucous membranes. Chest: Decreased air entry bilaterally. No wheezing or rhonchi. Cardiovascular: Positive S1, positive S2. Regular rate and rhythm. Abdomen: Positive bowel sounds in all 4 quadrants. Soft, non-tender, non- distended. : Deferred. Rectal: Deferred. Skin: Warm, dry. Intact. Extremities: 2+ radial pulses bilaterally. No lower extremity edema. Neuro: Awake, alert, oriented x3. No gross motor or sensory deficits. Cranial nerves II through XII intact. Gait not assessed. laboratory and microbiology Laboratory Tests 05/14/24 10:07 Test 05/14/24 10:07 Range/Units Serum Glucose 163 H 74-106 mg/dL Assessment/Plan Impression: Acute hypoxic respiratory failure Acute on chronic hypercarbic respiratory failure Dependence on supplemental oxygen Acute exacerbation asthma Morbid obesity BMI 65.8 Likely obstructive sleep apnea Events: Remains on supplemental oxygen 8 LPM Oxymizer Taper O2 as tolerated. Obtain STAT ABG d/t chronic hypercarbic respiratory failure. Continue bronchodilators Continue IV steroids Pt has risk factors for SANJAY - recommend outpatient sleep study for further evaluation Labs and imaging reviewed. Rest of plan as noted below Plan: Supplemental oxygen Titrate to keep O2 sats 88-94%. CXR reviewed, mild pulmonary vascular congestion. Continue bronchodilators. IV steroids Monitor renal function. Monitor electrolytes. Supplement as necessary. Monitor ins and outs. Diet and lifestyle modifications for weight reduction Morbid obesity - complicates all care GI prophylaxis- Pepcid DVT prophylaxis. Prognosis: Poor given patient's multiple co-morbidities. Condition: Critical Rest of plan per hospitalist and other consultants. A total of 35 minutes of critical care time was spent reviewing the patient record, examining the patient, making a diagnostic and therapeutic plan, discussing this plan with the medical personnel, following up on diagnostic studies and following the patient for clinical stability excluding any and all procedures. At least 50% of this time was spent in direct, [id number] contact Thank you, NORMA Kuhn, for allowing me to participate in this patient's care. Further recommendations will depend on the patient's clinical course. Please do not hesitate to contact me if you have any questions or concerns. This medical document was created using an electronic medical record system with [employer] computerized dictation system. Although these documentations are being carefully reviewed, there may still be some phonetic and typographical changes. The errors are purely typographical, due to imperfection on the software program, and do not reflect any compromise in the patient's medical care. Plan discussed with: Patient, Other (DEJAN Balderas) HEBER ABREU MD May 14, 2024 17:32
[2024-05-14 18:23] LABS: Base Excess 4.4 mmol/L (-2.0-3.0)
[2024-05-14 22:58] LABS: Base Excess 1.8 mmol/L (-2.0-3.0)
[2024-05-15] VITALS (21 sets, daily range): BP systolic 133–175; BP diastolic 62–104; PULSE 54–84; RESP 15–20; TEMP 98–98.2; O2SAT 90–98
[2024-05-15] MEDS: ACETAMINOPHEN 325 MG TAB PO PRN (01:07)
--- NOTE | 2024-05-15 08:07 | DVHPN2 ---
Reviewed: Care Plan, H&P, Labs, Medications, Previous Orders, Radiology Changes from previous H/P or p: No Changes Eyes: No Pain, No Vision change, No Conjunctivae inflammation, No Eyelid inflammation, No Other, No Redness ENT: No Ear pain, No Ear discharge, No Nose pain, No Nose discharge, No Nose congestion, No Mouth pain, No Mouth swelling, No Throat pain, No Throat swelling, No Other Cardiovascular: Chest Pain; No Palpitations, No Orthopnea, No Paroxysmal Noc. Dyspnea, No Edema, No Lt Headedness, No Other Respiratory: No Cough, No Dry; Shortness of breath, SOB with excertion; No Wheezing, No Hemoptysis, No Pleuritic Pain, No Sputum; Other (SOB at rest) Gastrointestinal: No Nausea, No Vomiting, No Abdominal Pain, No Diarrhea, No Constipation, No Melena, No Hematochezia, No Other Genitourinary: No Dysuria, No Frequency, No Incontinence, No Hematuria, No Retention, No Other Musculoskeletal: No other, No neck pain, No shoulder pain, No arm pain, No back pain, No hand pain, No leg pain, No foot pain Skin: No Rash, No Lesions, No Jaundice, No Bruising, No Other Objective Vitals Vital Signs Date Time Temp Pulse Resp B/P (MAP) Pulse Ox O2 Delivery O2 Flow Rate FiO2 05/15/24 07:40 64 95 Facial BiPAP Mask 35 05/15/24 05:00 98.2 16 147/62 (90) 98.2 05/14/24 14:56 5 Intake/Output Intake and Output 05/15/24 07:00 Intake Total 2765 ml Output Total 1000 ml Balance 1765 ml Intake Oral 1915 ml IV Total 850 ml Output Urine Total 1000 ml # Voids 2 Medications Current Medications Medications Dose Ordered Sig/Francis Route Start Time Stop Time Status Last Admin Dose Admin Albuterol 2.5 mg Q4HPRN PRN NEB 05/13/24 19:15 05/14/24 14:56 2.5 MG Ipratropium [place] 0.5 mg Q4HPRN PRN NEB 05/13/24 19:15 05/14/24 14:56 0.5 MG Methylprednisolone Sodium Succinate 40 mg Q8HR IV 05/13/24 22:00 05/15/24 05:19 40 MG Famotidine 20 mg Q12HR IV 05/13/24 22:00 05/14/24 21:55 20 MG Sodium Chloride 1,000 ml @ 60 mls/hr [id number] IV 05/13/24 19:15 05/14/24 13:42 60 MLS/HR Acetaminophen/ Hydrocodone Bitart 1 tab Q4HP PRN PO 05/13/24 19:15 05/14/24 08:07 1 TAB Ondansetron HCl 4 mg Q4HP PRN IV 05/13/24 19:15 05/15/24 01:07 4 MG Docusate Sodium 100 mg BIDPRN PRN PO 05/13/24 19:15 Acetaminophen 650 mg Q6HP PRN PO 05/13/24 19:15 05/15/24 01:07 650 MG Nitroglycerin 0.4 mg Q5MINP PRN SL 05/13/24 20:30 Morphine Sulfate 2 mg Q30M PRN IV 05/13/24 20:30 Hydralazine HCl 10 mg Q6HP PRN IV 05/13/24 22:00 05/14/24 05:41 10 MG Losartan Potassium 100 mg DAILY PO 05/14/24 10:00 05/14/24 10:05 100 MG Amlodipine Besylate 10 mg DAILY PO 05/15/24 10:00 Metoprolol Tartrate 50 mg BID PO 05/14/24 10:00 05/14/24 21:53 50 MG Piperacillin Sod/ Tazobactam Sod 100 ml @ 25 mls/hr Q8HR IV 05/14/24 14:00 05/15/24 05:19 25 MLS/HR Laboratory Results Laboratory Tests 05/14/24 10:07 Chemistry Test 05/14/24 10:07 Albumin 4.3 g/dL (3.2-4.8) Calcium Level 9.6 mg/dL (8.7-10.4) Total Protein 7.5 g/dL (5.7-8.2) Cardiac Markers Test 05/14/24 10:07 B-Type Natriuretic Peptide 71.13 pg/mL (0-100) LFT Test 05/14/24 10:07 Alanine Aminotransferase (ALT) 20 U/L (7-40) Alkaline Phosphatase 95 U/L (46-116) Aspartate Amino Transferase (AST) 11 U/L (13-40) L Total Bilirubin 0.5 mg/dL (0.2-1.0) Blood Gas Results Test 05/14/24 15:24 05/14/24 18:05 05/14/24 22:02 Arterial Blood pH 7.225 (7.350-7.450) 7.255 (7.350-7.450) 7.254 (7.350-7.450) FiO2 % 46.0 45.0 45.0 Labs and/or images reviewed: Labs reviewed by me, Image(s) reviewed by me Assessment/Plan Assessment/Plan Acute hypoxic respiratory failure: Oxygen 8 liters/minute by Oxymizer, pulmonary consult by Dr. Chavez appreciated Acute on chronic hypercarbic respiratory failure: Albuterol Atrovent Solu-Medrol Possible community-acquired pneumonia: Zosyn Acute exacerbation asthma Morbid obesity BMI 65.8 Likely obstructive sleep apnea Chest x-ray negative Morbid obesity BMI of 65 Jeaneth test negative Flu test negative Patient lives in [place] Time spent 55 minutes Patient is full code Plan discussed with: Patient My Orders Orders - REBEKAH MCKEON MD Procedure Category Date Status Time Piperacillin-Tazob PHA 05/14/24 In Process 3.375gm (Zosyn 3.375g 14:00 Abg W/ Co-Ox RT 05/14/24 Logged 15:07 Date of Service: May 15, 2024 Billing Provider: REBEKAH MCKEON MD Common Visit Codes: [id number] INP/OBS CARE(HIGH) REBEKAH MCKEON MD May 15, 2024 08:07
[2024-05-15] MEDS: amLODIPine BESYLATE 5 MG TAB PO SCH (10:00)
[2024-05-15 11:01] LABS: Base Excess 5.9 mmol/L (-2.0-3.0)
--- NOTE | 2024-05-15 18:55 | DVHPN2 ---
Progress Note - Dictate Date Seen: May 15, 2024 Medical Necessity Reason Pt with a Central, PICC or Fol: No Subjective Patient seen and examined at bedside. Remains on BiPAP Overnight events reviewed. vital signs Vital Sign Date Time Temp Pulse Resp B/P (MAP) Pulse Ox O2 Delivery O2 Flow Rate FiO2 05/15/24 18:30 166/67 05/15/24 18:10 67 94 Facial BiPAP Mask 30 05/15/24 17:00 98.0 18 98.0 05/15/24 10:00 5.0 Total Intake and Output 05/14/24 05/14/24 05/15/24 15:00 23:00 07:00 Intake Total 1160 ml 1605 ml Output Total 1000 ml Balance 160 ml 1605 ml medications Current Medications Medications Dose Ordered Sig/Francis Route Start Time Stop Time Status Last Admin Dose Admin Albuterol 2.5 mg Q4HPRN PRN NEB 05/13/24 19:15 05/14/24 14:56 2.5 MG Ipratropium [place] 0.5 mg Q4HPRN PRN NEB 05/13/24 19:15 05/14/24 14:56 0.5 MG Methylprednisolone Sodium Succinate 40 mg Q8HR IV 05/13/24 22:00 05/15/24 13:20 40 MG Famotidine 20 mg Q12HR IV 05/13/24 22:00 05/15/24 09:38 20 MG Sodium Chloride 1,000 ml @ 60 mls/hr [id number] IV 05/13/24 19:15 05/14/24 13:42 60 MLS/HR Acetaminophen/ Hydrocodone Bitart 1 tab Q4HP PRN PO 05/13/24 19:15 05/14/24 08:07 1 TAB Ondansetron HCl 4 mg Q4HP PRN IV 05/13/24 19:15 05/15/24 01:07 4 MG Docusate Sodium 100 mg BIDPRN PRN PO 05/13/24 19:15 Acetaminophen 650 mg Q6HP PRN PO 05/13/24 19:15 05/15/24 01:07 650 MG Nitroglycerin 0.4 mg Q5MINP PRN SL 05/13/24 20:30 Morphine Sulfate 2 mg Q30M PRN IV 05/13/24 20:30 Hydralazine HCl 10 mg Q6HP PRN IV 05/13/24 22:00 05/15/24 18:30 10 MG Losartan Potassium 100 mg DAILY PO 05/14/24 10:00 05/14/24 10:05 100 MG Amlodipine Besylate 10 mg DAILY PO 05/15/24 10:00 Metoprolol Tartrate 50 mg BID PO 05/14/24 10:00 05/14/24 21:53 50 MG Piperacillin Sod/ Tazobactam Sod 100 ml @ 25 mls/hr Q8HR IV 05/14/24 14:00 05/15/24 13:22 25 MLS/HR objective Gen.: Patient lying in bed in no apparent distress. On BiPAP. Head: Normocephalic, atraumatic. Eyes: EOMI/PERRLA. Ears: Normal hearing. Normal anatomy. Neck/trachea: Trachea midline, supple. Nose: Normal external anatomy. Mouth: Moist mucous membranes. Chest: Decreased air entry bilaterally. No wheezing or rhonchi. Cardiovascular: Positive S1, positive S2. Regular rate and rhythm. Abdomen: Positive bowel sounds in all 4 quadrants. Soft, non-tender, non- distended. : Deferred. Rectal: Deferred. Skin: Warm, dry. Intact. Extremities: 2+ radial pulses bilaterally. No lower extremity edema. Neuro: Awake, alert, oriented x3. No gross motor or sensory deficits. Cranial nerves II through XII intact. Gait not assessed. laboratory and microbiology Laboratory Tests 05/14/24 10:07 Test 05/14/24 10:07 Range/Units Serum Glucose 163 H 74-106 mg/dL Assessment/Plan Impression: Acute hypoxic respiratory failure Acute on chronic hypercarbic respiratory failure Dependence on supplemental oxygen Acute exacerbation asthma Morbid obesity BMI 65.8 Likely obstructive sleep apnea Events: Remains on BiPAP with IPAP 18, EPAP 7 Will increase IPAP to 20 Patient is lethargic. STAT ABG shows acidemia due to hypercarbia Continue bronchodilators Continue IV steroids Continue antibiotics Order DME for NIPPV with IPAP 20, EPAP 7, respiratory rate 12. Pt has risk factors for SANJAY - recommend outpatient sleep study for further evaluation Labs and imaging reviewed. Rest of plan as noted below Plan: Continue BiPAP with IPAP 20, EPAP 7 Titrate to keep O2 sats 88-94%. CXR reviewed, mild pulmonary vascular congestion. Continue bronchodilators. IV steroids Monitor renal function. Monitor electrolytes. Supplement as necessary. Monitor ins and outs. Diet and lifestyle modifications for weight reduction Morbid obesity - complicates all care GI prophylaxis- Pepcid DVT prophylaxis. Prognosis: Poor given patient's multiple co-morbidities. Condition: Critical Rest of plan per hospitalist and other consultants. A total of 35 minutes of critical care time was spent reviewing the patient record, examining the patient, making a diagnostic and therapeutic plan, discussing this plan with the medical personnel, following up on diagnostic studies and following the patient for clinical stability excluding any and all procedures. At least 50% of this time was spent in direct, [id number] contact Thank you, NORMA Kuhn, for allowing me to participate in this patient's care. Further recommendations will depend on the patient's clinical course. Please do not hesitate to contact me if you have any questions or concerns. This medical document was created using an electronic medical record system with [employer] computerized dictation system. Although these documentations are being carefully reviewed, there may still be some phonetic and typographical changes. The errors are purely typographical, due to imperfection on the software program, and do not reflect any compromise in the patient's medical care. Plan discussed with: Other (DEJAN Barakat) Critical Care Time(min): 35 HEBER ABREU MD May 15, 2024 18:55
[2024-05-16] VITALS (24 sets, daily range): BP systolic 138–194; BP diastolic 69–114; PULSE 54–89; RESP 17–20; TEMP 97.9–98.9; O2SAT 90–100
--- NOTE | 2024-05-16 09:30 | DVHPN2 ---
Reviewed: Care Plan, H&P, Labs, Medications, Previous Orders, Radiology Changes from previous H/P or p: No Changes Eyes: No Pain, No Vision change, No Conjunctivae inflammation, No Eyelid inflammation, No Other, No Redness ENT: No Ear pain, No Ear discharge, No Nose pain, No Nose discharge, No Nose congestion, No Mouth pain, No Mouth swelling, No Throat pain, No Throat swelling, No Other Cardiovascular: Chest Pain; No Palpitations, No Orthopnea, No Paroxysmal Noc. Dyspnea, No Edema, No Lt Headedness, No Other Respiratory: No Cough, No Dry; Shortness of breath, SOB with excertion; No Wheezing, No Hemoptysis, No Pleuritic Pain, No Sputum; Other (SOB at rest) Gastrointestinal: No Nausea, No Vomiting, No Abdominal Pain, No Diarrhea, No Constipation, No Melena, No Hematochezia, No Other Genitourinary: No Dysuria, No Frequency, No Incontinence, No Hematuria, No Retention, No Other Musculoskeletal: No other, No neck pain, No shoulder pain, No arm pain, No back pain, No hand pain, No leg pain, No foot pain Skin: No Rash, No Lesions, No Jaundice, No Bruising, No Other Objective Vitals Vital Signs Date Time Temp Pulse Resp B/P (MAP) Pulse Ox O2 Delivery O2 Flow Rate FiO2 05/16/24 08:50 84 92 Facial BiPAP Mask 30 05/16/24 05:30 167/99 (121) 05/16/24 05:00 98.9 18 98.9 05/15/24 20:00 10 Intake/Output Intake and Output 05/16/24 07:00 Intake Total 900 ml Output Total 1750 ml Balance -850 ml Intake Oral 900 ml Output Urine Total 1750 ml # Voids 4 Medications Current Medications Medications Dose Ordered Sig/Francis Route Start Time Stop Time Status Last Admin Dose Admin Albuterol 2.5 mg Q4HPRN PRN NEB 05/13/24 19:15 05/15/24 22:09 2.5 MG Ipratropium [place] 0.5 mg Q4HPRN PRN NEB 05/13/24 19:15 05/15/24 22:10 0.5 MG Methylprednisolone Sodium Succinate 40 mg Q8HR IV 05/13/24 22:00 05/16/24 05:34 40 MG Famotidine 20 mg Q12HR IV 05/13/24 22:00 05/15/24 22:03 20 MG Sodium Chloride 1,000 ml @ 60 mls/hr [id number] IV 05/13/24 19:15 05/14/24 13:42 60 MLS/HR Acetaminophen/ Hydrocodone Bitart 1 tab Q4HP PRN PO 05/13/24 19:15 05/14/24 08:07 1 TAB Ondansetron HCl 4 mg Q4HP PRN IV 05/13/24 19:15 05/15/24 01:07 4 MG Docusate Sodium 100 mg BIDPRN PRN PO 05/13/24 19:15 Acetaminophen 650 mg Q6HP PRN PO 05/13/24 19:15 05/15/24 01:07 650 MG Nitroglycerin 0.4 mg Q5MINP PRN SL 05/13/24 20:30 Morphine Sulfate 2 mg Q30M PRN IV 05/13/24 20:30 Hydralazine HCl 10 mg Q6HP PRN IV 05/13/24 22:00 05/16/24 01:00 10 MG Losartan Potassium 100 mg DAILY PO 05/14/24 10:00 05/14/24 10:05 100 MG Amlodipine Besylate 10 mg DAILY PO 05/15/24 10:00 Metoprolol Tartrate 50 mg BID PO 05/14/24 10:00 05/15/24 22:03 50 MG Piperacillin Sod/ Tazobactam Sod 100 ml @ 25 mls/hr Q8HR IV 05/14/24 14:00 05/16/24 05:34 25 MLS/HR Laboratory Results Laboratory Tests 05/14/24 10:07 Blood Gas Results Test 05/15/24 10:52 Arterial Blood pH 7.297 (7.350-7.450) FiO2 % 28.0 Microbiology Microbiology Date/Time Source Procedure Growth Status 05/15/24 04:10 Nose MRSA Screen - Final Complete Labs and/or images reviewed: Labs reviewed by me, Image(s) reviewed by me Assessment/Plan Assessment/Plan Acute hypoxic respiratory failure: Oxygen 8 liters/minute by [employer], pulmonary consult by Dr. Chavez appreciated Acute on chronic hypercarbic respiratory failure: Albuterol Atrovent Solu-Medrol Possible community-acquired pneumonia: Zosyn Acute exacerbation asthma History of intubation 2 years ago at [facility] Morbid obesity BMI 65.8 Obstructive sleep apnea Chest x-ray negative Morbid obesity BMI of 65 Jeaneth test negative Flu test negative Patient lives in [place] Time spent 65 minutes Discussed with the patient and patient wants to be full code Advanced care planning time 20 minutes Plan discussed with: Patient Date of Service: May 16, 2024 Billing Provider: REBEKAH MCKEON MD Common Visit Codes: [id number] CARE 30-74 MIN REBEKAH MCKEON MD May 16, 2024 09:30
[2024-05-16 10:02] LABS: Urine Bacteria None Seen /hpf (None Seen)
[2024-05-16 11:12] LABS: Urine Blood Negative /uL (Negative); Urine Clarity Clear (Clear); Urine Color Light-Yellow (Yellow); Urine Protein, UAD Negative (Negative); Urine Specific Gravity 1.022 (1.001-1.035); Urine Squamous Epithelial Cell FEW /hpf (<5); Urine Urobilinogen Normal (Negative); Urine WBC <1 /hpf (0 - 3)
[2024-05-16 12:10] LABS: Base Excess 7.1 mmol/L (-2.0-3.0)
[2024-05-16] MEDS: predniSONE 20 MG TAB PO SCH (22:21)
--- NOTE | 2024-05-16 22:35 | DVHPN2 ---
Progress Note - Dictate Date Seen: May 16, 2024 Medical Necessity Reason Pt with a Central, PICC or Fol: No Subjective Patient seen and examined at bedside. Remains on BiPAP Overnight events reviewed. vital signs Vital Sign Date Time Temp Pulse Resp B/P (MAP) Pulse Ox O2 Delivery O2 Flow Rate FiO2 05/16/24 22:21 79 138/98 05/16/24 21:00 98.9 18 98 98.9 05/16/24 21:00 30 05/16/24 19:59 Facial BiPAP Mask 05/16/24 10:00 5 Total Intake and Output 05/15/24 05/15/24 05/16/24 15:00 23:00 07:00 Intake Total 700 ml 200 ml Output Total 425 ml 550 ml 775 ml Balance -425 ml 150 ml -575 ml medications Current Medications Medications Dose Ordered Sig/Francis Route Start Time Stop Time Status Last Admin Dose Admin Albuterol 2.5 mg Q4HPRN PRN NEB 05/13/24 19:15 05/15/24 22:09 2.5 MG Ipratropium [place] 0.5 mg Q4HPRN PRN NEB 05/13/24 19:15 05/15/24 22:10 0.5 MG Famotidine 20 mg Q12HR IV 05/13/24 22:00 05/16/24 22:25 20 MG Sodium Chloride 1,000 ml @ 60 mls/hr [id number] IV 05/13/24 19:15 05/14/24 13:42 60 MLS/HR Acetaminophen/ Hydrocodone Bitart 1 tab Q4HP PRN PO 05/13/24 19:15 05/16/24 18:48 1 TAB Ondansetron HCl 4 mg Q4HP PRN IV 05/13/24 19:15 05/15/24 01:07 4 MG Docusate Sodium 100 mg BIDPRN PRN PO 05/13/24 19:15 Acetaminophen 650 mg Q6HP PRN PO 05/13/24 19:15 05/15/24 01:07 650 MG Nitroglycerin 0.4 mg Q5MINP PRN SL 05/13/24 20:30 Morphine Sulfate 2 mg Q30M PRN IV 05/13/24 20:30 Hydralazine HCl 10 mg Q6HP PRN IV 05/13/24 22:00 05/16/24 18:06 10 MG Losartan Potassium 100 mg DAILY PO 05/14/24 10:00 05/16/24 10:07 100 MG Amlodipine Besylate 10 mg DAILY PO 05/15/24 10:00 05/16/24 10:09 10 MG Metoprolol Tartrate 50 mg BID PO 05/14/24 10:00 05/16/24 22:21 50 MG Piperacillin Sod/ Tazobactam Sod 100 ml @ 25 mls/hr Q8HR IV 05/14/24 14:00 05/16/24 22:25 25 MLS/HR Prednisone 20 mg BID PO 05/16/24 22:00 05/21/24 21:59 05/16/24 22:21 20 MG objective Gen.: Patient lying in bed in no apparent distress. On BiPAP. Head: Normocephalic, atraumatic. Eyes: EOMI/PERRLA. Ears: Normal hearing. Normal anatomy. Neck/trachea: Trachea midline, supple. Nose: Normal external anatomy. Mouth: Moist mucous membranes. Chest: Decreased air entry bilaterally. No wheezing or rhonchi. Cardiovascular: Positive S1, positive S2. Regular rate and rhythm. Abdomen: Positive bowel sounds in all 4 quadrants. Soft, non-tender, non- distended. : Deferred. Rectal: Deferred. Skin: Warm, dry. Intact. Extremities: 2+ radial pulses bilaterally. No lower extremity edema. Neuro: Awake, alert, oriented x3. No gross motor or sensory deficits. Cranial nerves II through XII intact. Gait not assessed. laboratory and microbiology Laboratory Tests 05/14/24 10:07 Test 05/14/24 10:07 Range/Units Serum Glucose 163 H 74-106 mg/dL Assessment/Plan Impression: Acute hypoxic respiratory failure Acute on chronic hypercarbic respiratory failure Dependence on supplemental oxygen Acute exacerbation asthma Morbid obesity BMI 65.8 Likely obstructive sleep apnea Events: Remains on BiPAP with IPAP 20, EPAP 7 RR 15, FIO2 30% Patient is altered, possibly due to steroids. ABG reviewed, close to compensation. Continue bronchodilators Continue IV steroids - taper as tolerated Continue antibiotics Order DME for NIPPV with IPAP 20, EPAP 7, respiratory rate 12. Pt has risk factors for SANJAY - recommend outpatient sleep study for further evaluation Labs and imaging reviewed. Rest of plan as noted below Plan: Continue BiPAP with IPAP 20, EPAP 7 RR 15, FIO2 30% Titrate to keep O2 sats 88-94%. CXR reviewed, mild pulmonary vascular congestion. Continue bronchodilators. IV steroids Monitor renal function. Monitor electrolytes. Supplement as necessary. Monitor ins and outs. Diet and lifestyle modifications for weight reduction Morbid obesity - complicates all care GI prophylaxis- Pepcid DVT prophylaxis. Prognosis: Poor given patient's multiple co-morbidities. Condition: Critical Rest of plan per hospitalist and other consultants. A total of 35 minutes of critical care time was spent reviewing the patient record, examining the patient, making a diagnostic and therapeutic plan, discussing this plan with the medical personnel, following up on diagnostic studies and following the patient for clinical stability excluding any and all procedures. At least 50% of this time was spent in direct, [id number] contact Thank you, NORMA Kuhn, for allowing me to participate in this patient's care. Further recommendations will depend on the patient's clinical course. Please do not hesitate to contact me if you have any questions or concerns. This medical document was created using an electronic medical record system with [employer] dictation system. Although these documentations are being carefully reviewed, there may still be some phonetic and typographical changes. The errors are purely typographical, due to imperfection on the software program, and do not reflect any compromise in the patient's medical care. Plan discussed with: Other (DEJAN Lang) Critical Care Time(min): 35 HEBER ABREU MD May 16, 2024 22:35
[2024-05-17] VITALS (11 sets, daily range): BP systolic 140–187; BP diastolic 84–109; PULSE 66–89; RESP 18–20; TEMP 97.7–98.8; O2SAT 86–100
--- NOTE | 2024-05-17 09:11 | DVHPN2 ---
Reviewed: Care Plan, H&P, Labs, Medications, Previous Orders, Radiology Changes from previous H/P or p: No Changes Eyes: No Pain, No Vision change, No Conjunctivae inflammation, No Eyelid inflammation, No Other, No Redness ENT: No Ear pain, No Ear discharge, No Nose pain, No Nose discharge, No Nose congestion, No Mouth pain, No Mouth swelling, No Throat pain, No Throat swelling, No Other Cardiovascular: Chest Pain; No Palpitations, No Orthopnea, No Paroxysmal Noc. Dyspnea, No Edema, No Lt Headedness, No Other Respiratory: No Cough, No Dry; Shortness of breath, SOB with excertion; No Wheezing, No Hemoptysis, No Pleuritic Pain, No Sputum; Other (SOB at rest) Gastrointestinal: No Nausea, No Vomiting, No Abdominal Pain, No Diarrhea, No Constipation, No Melena, No Hematochezia, No Other Genitourinary: No Dysuria, No Frequency, No Incontinence, No Hematuria, No Retention, No Other Musculoskeletal: No other, No neck pain, No shoulder pain, No arm pain, No back pain, No hand pain, No leg pain, No foot pain Skin: No Rash, No Lesions, No Jaundice, No Bruising, No Other Objective Vitals Vital Signs Date Time Temp Pulse Resp B/P (MAP) Pulse Ox O2 Delivery O2 Flow Rate FiO2 05/17/24 07:25 88 96 Facial BiPAP Mask 35 05/17/24 05:20 158/107 05/17/24 05:00 98.0 20 98.0 05/16/24 20:00 10 Intake/Output Intake and Output 05/17/24 07:00 Intake Total 1274 ml Output Total 800 ml Balance 474 ml Intake Oral 1274 ml Output Urine Total 800 ml # Voids 3 Medications Current Medications Medications Dose Ordered Sig/Francis Route Start Time Stop Time Status Last Admin Dose Admin Albuterol 2.5 mg Q4HPRN PRN NEB 05/13/24 19:15 05/17/24 00:05 2.5 MG Ipratropium [place] 0.5 mg Q4HPRN PRN NEB 05/13/24 19:15 05/17/24 00:05 0.5 MG Famotidine 20 mg Q12HR IV 05/13/24 22:00 05/16/24 22:25 20 MG Sodium Chloride 1,000 ml @ 60 mls/hr [id number] IV 05/13/24 19:15 05/14/24 13:42 60 MLS/HR Acetaminophen/ Hydrocodone Bitart 1 tab Q4HP PRN PO 05/13/24 19:15 05/16/24 18:48 1 TAB Ondansetron HCl 4 mg Q4HP PRN IV 05/13/24 19:15 05/15/24 01:07 4 MG Docusate Sodium 100 mg BIDPRN PRN PO 05/13/24 19:15 Acetaminophen 650 mg Q6HP PRN PO 05/13/24 19:15 05/15/24 01:07 650 MG Nitroglycerin 0.4 mg Q5MINP PRN SL 05/13/24 20:30 Morphine Sulfate 2 mg Q30M PRN IV 05/13/24 20:30 Hydralazine HCl 10 mg Q6HP PRN IV 05/13/24 22:00 05/17/24 05:20 10 MG Losartan Potassium 100 mg DAILY PO 05/14/24 10:00 05/16/24 10:07 100 MG Amlodipine Besylate 10 mg DAILY PO 05/15/24 10:00 05/16/24 10:09 10 MG Metoprolol Tartrate 50 mg BID PO 05/14/24 10:00 05/16/24 22:21 50 MG Piperacillin Sod/ Tazobactam Sod 100 ml @ 25 mls/hr Q8HR IV 05/14/24 14:00 05/17/24 05:06 25 MLS/HR Prednisone 20 mg BID PO 05/16/24 22:00 05/21/24 21:59 05/16/24 22:21 20 MG Laboratory Results Laboratory Tests 05/14/24 10:07 Urinalysis Test 05/16/24 09:50 Urine Color Light-yellow (Yellow) Urine Clarity Clear (Clear) Urine pH 7.0 (5.0-9.0) Urine Specific [place] 1.022 (1.001-1.035) Urine Protein Negative (Negative) Urine Ketones Negative (Negative) Urine Blood Negative /uL (Negative) Urine Nitrite Negative (Negative) Urine Bilirubin Negative (Negative) Urine Urobilinogen Normal mg/dL (Negative) Urine Leukocyte Esterase Negative /uL (Negative) Urine RBC None seen /hpf (0 - 3) Urine WBC <1 /hpf (0 - 3) Urine Squamous Epithelial Cells Few /hpf (<5) Urine Bacteria None seen /hpf (None Seen) Urine Glucose Normal mg/dL (Normal) Blood Gas Results Test 05/16/24 11:02 Arterial Blood pH 7.323 (7.350-7.450) FiO2 % 30.0 Microbiology Microbiology Date/Time Source Procedure Growth Status 05/15/24 04:10 Nose MRSA Screen - Final Complete Labs and/or images reviewed: Labs reviewed by me, Image(s) reviewed by me Assessment/Plan Assessment/Plan Acute hypoxic respiratory failure: Oxygen by BiPAP 30 percent FiO2, pulmonary consult by Dr. Chavez appreciated Acute on chronic hypercarbic respiratory failure: Albuterol Atrovent prednisone Possible community-acquired pneumonia: Zosyn Acute exacerbation of asthma History of intubation 2 years ago at [facility] Morbid obesity BMI 65.8 Obstructive sleep apnea Chest x-ray negative Jeaneth test negative Flu test negative Patient lives in [place] Time spent 55 minutes Discussed with the patient and patient wants to be full code Advanced care planning time 20 minutes Plan discussed with: Patient My Orders Orders - REBEKAH MCKEON MD Procedure Category Date Status Time Urine Bacterial KHOI 05/16/24 In Process Culture 09:43 Abg W/ Co-Ox RT 05/16/24 Logged 09:48 Date of Service: May 17, 2024 Billing Provider: REBEKAH MCKEON MD Common Visit Codes: [id number] INP/OBS CARE(HIGH) REBEKAH MCKEON MD May 17, 2024 09:11
[2024-05-17 10:11] LABS: Base Excess 11.8 mmol/L (-2.0-3.0)
--- NOTE | 2024-05-17 10:21 | DVH ---
CHEST RADIOGRAPH Indication: INCREASING SOB Technique: Single frontal view of the chest was obtained COMPARISON: XY CHEST PORTABLE on DOS: 05/14/24, XY CHEST PORTABLE on DOS: 05/13/24, XY CHEST PORTABLE o n DOS: 04/16/24, XY CHEST PORTABLE on DOS: 04/07/23 FINDINGS: Lines and Tubes: None Lungs: Clear Pleura: No effusion. No pneumothorax. Cardiomediastinal contours: Unremarkable Bones: Unremarkable IMPRESSION: No acute disease.
--- NOTE | 2024-05-17 21:54 | DVHPN2 ---
Progress Note - Dictate Date Seen: May 17, 2024 Medical Necessity Reason Pt with a Central, PICC or Fol: No Subjective Patient seen and examined at bedside. Currently on supplemental oxygen Overnight events reviewed. vital signs Vital Sign Date Time Temp Pulse Resp B/P (MAP) Pulse Ox O2 Delivery O2 Flow Rate FiO2 05/17/24 17:00 97.7 89 20 155/98 (117) 86 97.7 05/17/24 10:00 Nasal Cannula* 3 32 Total Intake and Output 05/16/24 05/16/24 05/17/24 15:00 23:00 07:00 Intake Total 234 ml 240 ml 800 ml Output Total 800 ml Balance 234 ml -560 ml 800 ml medications Current Medications Medications Dose Ordered Sig/Francis Route Start Time Stop Time Status Last Admin Dose Admin Albuterol 2.5 mg Q4HPRN PRN NEB 05/13/24 19:15 05/17/24 00:05 2.5 MG Ipratropium [employer] 0.5 mg Q4HPRN PRN NEB 05/13/24 19:15 05/17/24 00:05 0.5 MG Famotidine 20 mg Q12HR IV 05/13/24 22:00 05/17/24 09:38 20 MG Sodium Chloride 1,000 ml @ 60 mls/hr [id number] IV 05/13/24 19:15 05/14/24 13:42 60 MLS/HR Acetaminophen/ Hydrocodone Bitart 1 tab Q4HP PRN PO 05/13/24 19:15 05/17/24 14:29 1 TAB Ondansetron HCl 4 mg Q4HP PRN IV 05/13/24 19:15 05/15/24 01:07 4 MG Docusate Sodium 100 mg BIDPRN PRN PO 05/13/24 19:15 Acetaminophen 650 mg Q6HP PRN PO 05/13/24 19:15 05/15/24 01:07 650 MG Nitroglycerin 0.4 mg Q5MINP PRN SL 05/13/24 20:30 Morphine Sulfate 2 mg Q30M PRN IV 05/13/24 20:30 Hydralazine HCl 10 mg Q6HP PRN IV 05/13/24 22:00 05/17/24 05:20 10 MG Losartan Potassium 100 mg DAILY PO 05/14/24 10:00 05/17/24 09:36 100 MG Amlodipine Besylate 10 mg DAILY PO 05/15/24 10:00 05/17/24 09:38 10 MG Metoprolol Tartrate 50 mg BID PO 05/14/24 10:00 05/17/24 09:36 50 MG Piperacillin Sod/ Tazobactam Sod 100 ml @ 25 mls/hr Q8HR IV 05/14/24 14:00 05/17/24 14:30 25 MLS/HR Acetazolamide 500 mg Q12HR PO 05/17/24 22:00 05/20/24 21:59 objective Gen.: Patient lying in bed in no apparent distress. On supplemental oxygen. Head: Normocephalic, atraumatic. Eyes: EOMI/PERRLA. Ears: Normal hearing. Normal anatomy. Neck/trachea: Trachea midline, supple. Nose: Normal external anatomy. Mouth: Moist mucous membranes. Chest: Decreased air entry bilaterally. No wheezing or rhonchi. Cardiovascular: Positive S1, positive S2. Regular rate and rhythm. Abdomen: Positive bowel sounds in all 4 quadrants. Soft, non-tender, non- distended. : Deferred. Rectal: Deferred. Skin: Warm, dry. Intact. Extremities: 2+ radial pulses bilaterally. No lower extremity edema. Neuro: Awake, alert, oriented x3. No gross motor or sensory deficits. Cranial nerves II through XII intact. Gait not assessed. laboratory and microbiology Laboratory Tests 05/14/24 10:07 Test 05/14/24 10:07 Range/Units Serum Glucose 163 H 74-106 mg/dL Assessment/Plan Impression: Acute hypoxic respiratory failure Acute on chronic hypercarbic respiratory failure Dependence on supplemental oxygen Acute exacerbation asthma Morbid obesity BMI 65.8 Likely obstructive sleep apnea Events: Currently on supplemental oxygen, 3 LPM NC Taper O2 as tolerated. Patient is altered, possibly due to steroids. ABG reviewed, compensated PaCO2 is elevated at 70.9. CXR reviewed, demonstrates no acute opacities. Stop steroids Continue bronchodilators Start Diamox Pain control Avoid oversedation Risk factors for SANJAY - recommend outpatient sleep study for further evaluation Labs and imaging reviewed. Rest of plan as noted below Plan: Supplemental oxygen Titrate to keep O2 sats 88-94%. Continue bronchodilators. Steroids discontinued Monitor renal function. Monitor electrolytes. Supplement as necessary. Monitor ins and outs. Diet and lifestyle modifications for weight reduction Morbid obesity - complicates all care GI prophylaxis- Pepcid DVT prophylaxis. Prognosis: Poor given patient's multiple co-morbidities. Rest of plan per hospitalist and other consultants. Thank you, NORMA Kuhn, for allowing me to participate in this patient's care. Further recommendations will depend on the patient's clinical course. Please do not hesitate to contact me if you have any questions or concerns. This medical document was created using an electronic medical record system with [employer] dictation system. Although these documentations are being carefully reviewed, there may still be some phonetic and typographical changes. The errors are purely typographical, due to imperfection on the software program, and do not reflect any compromise in the patient's medical care. Dietary Evaluation Review Comments: weight reduction diet Expected Outcomes/Goals: graduaal weight loss Plan discussed with: Patient, Other (DEJAN Calloway) HEBER ABREU MD May 17, 2024 21:54
[2024-05-17] MEDS ORDERED: acetaZOLAMIDE 250 MG TAB PO SCH (22:00)
--- NOTE | 2024-05-18 08:08 | DVHDS2 ---
Discharge Summary Date of Admission May 13, 2024 at 20:24 Date of Discharge: May 17, 2024 Admitting Diagnosis Shortness of breath Wounds: None Labs/Diagnostic Data: Laboratory Results Test 05/17/24 10:00 05/16/24 09:50 05/15/24 10:52 05/14/24 16:15 Blood Gas Specimen Type Arterial Blood Gas Sample Site Right radial Blood Gas Patient Temperature 37.0 Arterial Blood Date Drawn [id number] Arterial Blood pH 7.377 (7.350-7.450) Arterial Blood Partial Pressure CO2 70.9 mmHg (35.0-48.0) Arterial Blood Partial Pressure O2 87.2 mmHg (83.0-108.0) Arterial Blood HCO3 40.7 mmol/L (21.0-28.0) Arterial Blood Oxygen Saturation 95.4 % (94.0-98.0) Arterial Blood Base Excess 11.8 mmol/L (-2.0-3.0) Arterial Blood Oxyhemoglobin 93.8 % (94.0-98.0) Arterial Blood Carboxyhemoglobin 1.2 % (0.5-1.5) Arterial Blood Methemoglobin 0.5 % (0.0-1.5) Lloyd Test Yes Blood Gas Total Hemoglobin 16.20 g/dL (13.5-17.5) Blood Gas Set Respiration Rate 15.0 Blood Gas Modality Mask - bipap FiO2 % 35.0 Blood Gas EPAP 7 Blood Gas IPAP 20 Blood Gas Critical Value Read Back Yes Blood Gas Notified Whom Tae castellano. Blood Gas Notified Time [id number] Blood Gas Notified By Ray herr Urine Color Light-yellow (Yellow) Urine Clarity Clear (Clear) Urine pH 7.0 (5.0-9.0) Urine Specific [place] 1.022 (1.001-1.035) Urine Protein Negative (Negative) Urine Ketones Negative (Negative) Urine Blood Negative /uL (Negative) Urine Nitrite Negative (Negative) Urine Bilirubin Negative (Negative) Urine Urobilinogen Normal mg/dL (Negative) Urine Leukocyte Esterase Negative /uL (Negative) Urine RBC None seen /hpf (0 - 3) Urine WBC <1 /hpf (0 - 3) Urine Squamous Epithelial Cells Few /hpf (<5) Urine Bacteria None seen /hpf (None Seen) Urine Glucose Normal mg/dL (Normal) Blood Gas Pressure Support 11 POC Glucose 140 mg/dl (70-106) Test 05/14/24 15:24 05/14/24 12:04 05/14/24 10:07 05/14/24 00:00 Blood Gas Liter Flow 5.00 Influenza Type A Antigen Negative (Negative) Influenza Type B Antigen Negative (Negative) White Blood Count 8.7 10^3/uL (4.4-10.8) Red Blood Count 5.08 10^6/uL (4.5-5.90) Hemoglobin 14.9 g/dL (13.5-17.5) Hematocrit 46.4 % (41.0-53.0) Mean Corpuscular Volume 91.3 fL (80.0-100.0) Mean Corpuscular Hemoglobin 29.3 pg (28.0-32.0) Mean Corpuscular Hemoglobin Concent 32.1 g/dL (32.0-36.0) Red Cell Distribution Width 15.5 % (11.8-14.3) Platelet Count 339 10^3/uL (140-450) Mean Platelet Volume 7.9 fL (6.9-10.8) Neutrophils (%) (Auto) 86.3 % (37.0-80.0) Lymphocytes (%) (Auto) 8.9 % (10.0-50.0) Monocytes (%) (Auto) 4.5 % (0.0-12.0) Eosinophils (%) (Auto) 0.0 % (0.0-7.0) Basophils (%) (Auto) 0.3 % (0.0-2.0) Neutrophils # (Auto) 7.5 10 ^3/uL (1.6-8.6) Lymphocytes # (Auto) 0.8 10 ^3/uL (0.4-5.4) Monocytes # (Auto) 0.4 10 ^3/uL (0-1.3) Eosinophils # (Auto) 0 10 ^3/uL (0-0.8) Basophils # (Auto) 0 10 ^3/uL (0-0.2) Nucleated Red Blood Cells 0.0 % Sodium Level 135 mmol/L (136-145) Potassium Level 5.1 mmol/L (3.5-5.1) Chloride Level 100 mmol/L (98-107) Carbon Dioxide Level 32 mmol/L (20-31) Anion Gap 3 (5-15) Blood Urea Nitrogen 9 mg/dL (9-23) Creatinine 0.92 mg/dL (0.700-1.30) Glomerular Filtration Rate Calc 110 mL/min (>90) BUN/Creatinine Ratio 9.8 (10.0-20.0) Serum Glucose 163 mg/dL (74-106) Calcium Level 9.6 mg/dL (8.7-10.4) Total Bilirubin 0.5 mg/dL (0.2-1.0) Aspartate Amino Transferase (AST) 11 U/L (13-40) Alanine Aminotransferase (ALT) 20 U/L (7-40) Alkaline Phosphatase 95 U/L (46-116) B-Type Natriuretic Peptide 71.13 pg/mL (0-100) Total Protein 7.5 g/dL (5.7-8.2) Albumin 4.3 g/dL (3.2-4.8) SARS-CoV-2 Antigen (Rapid) Negative (NEGATIVE) Test 05/13/24 17:30 05/13/24 14:29 Magnesium Level 2.0 mg/dL (1.6-2.6) Troponin I High Sensitivity 17 ng/L (</=54) D-Dimer, Quantitative 0.47 mg/L FEU (0.0-0.49) Other Laboratory Tests 05/14/24 10:07 Brief Hx & Hospital Course: 38-year-old male morbidly obese BMI 64 with a history of chronic respiratory failure on home oxygen and history of intubation two years ago at [facility] history of obstructive sleep apnea came in for shortness of breaths. Found to have acute on chronic hypercarbic respiratory failure placed on albuterol Atrovent and Solu-Medrol and later converted to prednisone tablets patient was seen by pulmonology Dr. Chavez patient also had possible community- acquired pneumonia treated with Zosyn. Patient was noncompliant throughout the hospital stay refusing to wear the BiPAP at the time of leaving AMA patient was not 30 percent of BiPAP. Patient refused to be with the BiPAP and oxygen and decided to leave AMA and left AMA. . He was full code. Consequences and complications including possible explained to the patient and he verbalized understanding. General condition poor at the time of leaving AMA per nurse's notes Jeaneth test negative Flu test negative Chest x-ray negative Consults/Reason for consult Pulmonology Dr. Chavez Operations or Procedures None Condition at Discharge: Poor Final Diagnosis/Problems List Acute hypoxic respiratory failure: Oxygen by BiPAP 30 percent FiO2, pulmonary consult by Dr. Chavez appreciated Acute on chronic hypercarbic respiratory failure: Albuterol Atrovent prednisone Possible community-acquired pneumonia: Zosyn Acute exacerbation of asthma History of intubation 2 years ago at [facility] Morbid obesity BMI 65.8 Obstructive sleep apnea Chest x-ray negative Jeaneth test negative Flu test negative Discharge Disposition: AMA Discharge Instruct/Medications Diet comment: Not applicable Patient left AMA Activity comment: Not applicable Patient left AMA Follow Up/Referral: Not applicable Patient left AMA Medications: Not applicable Patient left AMA 39 (Time taken for discharge summary 39 minutes) Discharge Statement: "Patient was advised to return to the ER or call 911 if any headaches, dizziness, shortness of breath, chest pain, abdominal pain, bleeding, fevers, or worsening of medical condition. Patient was counseled about treatment plan, medications, possible side effects, patientverbalized understanding. All questions were answered to the best of my ability. This discharge took greater then 30 minutes in planning, reviewing documentation, counseling the patient, and discussing with other team members." ASSESSMENT ASSESSMENT Assessment Date of Service: May 18, 2024 Billing Provider: REBEKAH MCKEON MD Common Visit Codes: 13243-XWT/OBS DISCH DAY >30min REBEKAH MCKEON MD May 18, 2024 08:08
== END 2024-05-17 20:45 | disposition left against medical advice (07) | DRG 133 ==
LOC: ER 13:44 → TELE 20:24 → TELE-CENTR 05-14 02:49
PROVIDERS: ADMIT Nurse Practitioner Family; ATTEND Family Medicine
PROC: 5A09457 Assistance with Respiratory Ventilation, 24-96 Consecutive Hours, Continuous Positive Airway Pressure (ICD-10-PCS; principal; 2024-05-14)
DX: J96.21 Acute and chronic respiratory failure with hypoxia (principal); E87.20 Acidosis, unspecified; J15.9 Unspecified bacterial pneumonia; J45.901 Unspecified asthma with (acute) exacerbation; Z68.44 Body mass index [BMI] 60.0-69.9, adult; I16.0 Hypertensive urgency; J96.22 Acute and chronic respiratory failure with hypercapnia; Z53.29 Procedure and treatment not carried out because of patient's decision for other reasons; Z20.822 Contact with and (suspected) exposure to COVID-19; G47.33 Obstructive sleep apnea (adult) (pediatric); E66.01 Morbid (severe) obesity due to excess calories; I10 Essential (primary) hypertension; Z99.81 Dependence on supplemental oxygen; Z83.3 Family history of diabetes mellitus; Z82.5 Family history of asthma and other chronic lower respiratory diseases; Z82.49 Family history of ischemic heart disease and other diseases of the circulatory system
CPT/HCPCS: 36415; 36600; 71045; 80053; 81001; 82805; 82962; 83735; 83880; 84484; 85025; 85379; 87081; 87086; 87426; 87804; 93005; 94640; 94660; 99291; G0378; J2405; J2543; J3490